=== PATIENT | male | born 1965 | race Caucasian/White ===

== ENCOUNTER 2025-09-03 07:40 | Emergency (ER) | payer BC, SELFPAY ==
[2025-09-03] VITALS (11 sets, daily range): BP systolic 115–158; BP diastolic 63–100; PULSE 62–77; RESP 13–19; TEMP 36.6–36.7; O2SAT 78–99; BMI 30.3
--- NOTE | 2025-09-03 07:42 | ED_ITS ---
Discharge Plan Disposition Patient Disposition: Home, Self-Care Condition: Fair Prescriptions Prescriptions: New oxycodone 5 mg tablet 5 mg PO Q6H PRN (Reason: pain) Qty: 12 0RF ibuprofen 800 mg tablet 800 mg PO Q8H PRN (Reason: pain) Qty: 30 0RF tamsulosin [Flomax] 0.4 mg capsule 0.4 mg PO HS Qty: 7 0RF ondansetron 4 mg tablet,disintegrating 4 mg PO Q6H PRN (Reason: nausea and vomiting) Qty: 12 0RF acetaminophen 500 mg capsule 1,000 mg PO Q6H PRN (Reason: pain) Qty: 30 0RF Referrals Follow up/Referrals: Shreyas Shukla [Primary Care Provider, Medical] - See instructions Activity Restrictions/Add. Instructions Additional Instructions/Restrictions: Stay well-hydrated. Return if you develop fevers, inability urinate, inability to control pain with medicines at home. Follow-up with urology at the [facility]. If they do not call you, call their clinic line, . You have been prescribed opioid pain medications. Take only as prescribed and only when needed for pain. Please do not drive, operate heavy machinery, or make important decisions while taking this medication until you know how it affects you as they can impair your judgement. Do not drink alcohol while taking this medication. Should you need a refill of this pain medication, please contact your primary care provider. Clinical Impressions Clinical Impression: Ureterolithiasis Instructions Patient Instructions: DI for Acute Abdominal Pain Print Language Print Language: Occitan Discharge ED Provider: Joss Brady Adult HPI General Chief complaint: Abdominal Pain Stated complaint: pain on L side Time Seen by Provider: 09/03/25 07:42 History of Present Illness HPI narrative: Patient is a 59-year-old male with history of hypertension hyperlipidemia and kidney stones. He has had to have stenting in the past as well as lithotripsy. He presents today due to concerns for left-sided flank pain that began last night. He thought that he could tough it out but it has worsened throughout the night and into this morning. It is sharp and stabbing in nature radiating from his left flank to his left groin into his testicle and down his leg. He denies any testicular swelling or redness or pain directly, just radiation from his left flank. He reports that it feels similar to his previous kidney stones. He is still making urine, denies any urinary changes denies any gross hematuria. Denies any fevers. Endorses nausea without vomiting. No other sick like symptoms. Denies any numbness tingling weakness chest pain shortness of breath. Denies any alcohol tobacco or drug use. Related Data Previous Rx's ?Medication ?Instructions ?Recorded acetaminophen 500 mg capsule 1,000 mg (2 x 500 mg) PO Q6H PRN 09/03/25 pain #30 caps ibuprofen 800 mg tablet 800 mg PO Q8H PRN pain #30 t abs 09/03/25 ondansetron 4 mg disintegrating 4 mg PO Q6H PRN nausea and 09/03/25 tablet vomiting #12 tabs oxycodone 5 mg tablet 5 mg PO Q6H PRN pain #12 tab s 09/03/25 tamsulosin 0.4 mg capsule (Flomax) 0.4 mg PO HS #7 cap s 09/03/25 Allergies Allergy/AdvReac Type Severity Reaction Status Date / Time No Known Allergies Allergy Verified 09/03/25 07:58 [facility] Disclaimer: The information contained in this section may have been updated after the patient was seen, as this information can be updated by other users. Social History Smoking Status: Former smoker alcohol intake: never current occupational status: employed Travel in the last 8 weeks?: None ROS Obtained: Yes All systems reviewed & no additional complaints except as documented Physical Exam General General appearance: alert and in no apparent distress Head Head exam: atraumatic and normocephalic Eye Eye exam: Present PERRL and EOMI ENT ENT exam: Present normal oropharynx Neck Neck exam: Present full ROM and trachea midline Chest Chest inspection: Present symmetric chest wall rise Respiratory Respiratory exam: Present normal lung sounds bilaterally; Absent stridor Cardiovascular Cardiovascular exam: Present regular rate and normal rhythm Abdominal Exam Abdominal exam: Present soft; Absent distention or tenderness Extremities Exam Extremities exam: Present full ROM Back Exam Back exam: Present CVA tenderness (L) Neurological Exam Neurological exam: Present alert and oriented X3 Psychiatric Psychiatric exam: Present normal mood Skin Skin exam: Present warm and dry Medical Decision Making Medical Records Screening: Per USPSTF and CDC recommendations, given the prevalence of disease in our region, it is our hospital?s policy to screen for HIV and viral Hepatitis for all patients aged 18 and over and those with ongoing risk factors. Markus Inquiry Pt receiving controlled substance: Yes Markus was queried for this patient: Yes Risks and benefits of using a controlled substance: were discussed with pt by me Vital Signs: 09/03/25 07:49 09/03/25 08:08 09/03/25 08:15 Temperature 97.9 F Temperature Source Oral Pulse Rate 66 75 Pulse Rate [Left Radial] 77 Respiratory Rate 19 Blood Pressure 146/68 H Blood Pressure [Right Arm] 158/100 H Blood Pressure Mean Blood Pressure Mean [Right Arm] 119 02 Sat by Pulse Oximetry 99 97 78 L Oxygen Delivery Method Room Air Room Air Nasal Cannula Oxygen Flow Rate (LPM) 2 09/03/25 08:30 09/03/25 08:45 09/03/25 09:00 Temperature Temperature Source Pulse Rate 70 72 74 Pulse Rate [Left Radial] Respiratory Rate Blood Pressure 126/78 122/79 121/81 Blood Pressure [Right Arm] Blood Pressure Mean 94 Blood Pressure Mean [Right Arm] 02 Sat by Pulse Oximetry 95 97 96 Oxygen Delivery Method Oxygen Flow Rate (LPM) 09/03/25 09:15 09/03/25 09:30 09/03/25 09:45 Temperature Temperature Source Pulse Rate 71 62 68 Pulse Rate [Left Radial] Respiratory Rate Blood Pressure 115/63 132/87 131/88 Blood Pressure [Right Arm] Blood Pressure Mean Blood Pressure Mean [Right Arm] 02 Sat by Pulse Oximetry 97 96 97 Oxygen Delivery Method Oxygen Flow Rate (LPM) 09/03/25 10:06 Temperature Temperature Source Pulse Rate Pulse Rate [Left Radial] Respiratory Rate Blood Pressure Blood Pressure [Right Arm] Blood Pressure Mean Blood Pressure Mean [Right Arm] 02 Sat by Pulse Oximetry 98 Oxygen Delivery Method Room Air Oxygen Flow Rate (LPM) Lab Data Lab Results 09/03/25 07:48: Urine Color Yellow, Urine Appearance Clear, Urine pH 6.0, Ur Specific [place]lin 1.025, Urine Protein Trace, Urine Glucose (UA) Negative, Urine Ketones Trace, Urine Blood 3+ A, Urine Nitrate Negative, Urine Bilirubin Negative, Urine Urobilinogen 0.2, Ur Leukocyte Esterase Negative, Urine RBC 20- 50, Urine WBC Occasional, Ur Squamous Epith Cells None, Urine Bacteria Trace 09/03/25 07:55: WBC 9.8, RBC 5.05, Hgb 14.0 L, Hct 41.3 L, MCV 81.8, MCH 27.7, MCHC 33.9, RDW 14.8, Plt Count 230, MPV 10.0, Neut % (Auto) 81.2 H, Lymph % (Auto) 12.6, [place] % (Auto) 5.4, Eos % (Auto) 0.2, Baso % (Auto) 0.3, Neut # (Auto) 8.0 H, Lymph # (Auto) 1.2, [place] # (Auto) 0.5, Eos # (Auto) 0.0, Baso # (Auto) 0.0, Sodium 135 L, Potassium 4.1, Chloride 105, Carbon Dioxide 21 L, Anion Gap 13.1, BUN 22 H, Creatinine 1.00, Estimated Creat Clear 94, Estimated GFR 76, Est GFR ( Amer) 92, Glucose 150 H, Calcium 9.6, Total Bilirubin 1.0, AST 39, ALT 43, Alkaline Phosphatase 126, Total Protein 8.0, Albumin 4.7, G lobulin 3.3 H, Albumin/Globulin Ratio 1.4, Lipase 79 09/03/25 07:55 09/03/25 07:55 Orders (Tests/Meds): ED MEDICATIONS Discontinued Medications Generic Name Dose Route Start Last Admin Trade Name Freq PRN Reason Stop Dose Admin Acetaminophen 1,000 mg 09/03/25 09:55 09/03/25 10:05 Acetaminophen 500mg Tab PO 09/03/25 09:56 1,000 mg ONCE ONE Administration Hydromorphone HCl 1 mg 09/03/25 07:51 09/03/25 08:08 Hydromorphone 2mg/Ml Syringe IV 09/03/25 07:52 1 mg ONCE ONE Administration Sodium Chloride 1,000 mls @ 999 mls/hr 09/03/25 07:51 09/03/25 09:25 Sod Chlor 0.9% 1000ml Bag IV 09/03/25 08:51 Infused .Q1H1M ONE Infusion Ketorolac Tromethamine 15 mg 09/03/25 07:51 09/03/25 08:07 Ketorolac 15mg/Ml Vial IV 09/03/25 07:52 15 mg ONCE ONE Administration Ondansetron HCl 4 mg 09/03/25 07:51 09/03/25 08:15 Ondansetron 4mg/2ml Vial IV 09/03/25 07:52 4 mg ONCE ONE Administration Oxycodone HCl 5 mg 09/03/25 09:56 09/03/25 10:05 Oxycodone 5mg Immediate Release Tablet PO 09/03/25 09:57 5 mg ONCE ONE Administration Tamsulosin HCl 0.4 mg 09/03/25 08:17 09/03/25 08:40 Tamsulosin 0.4mg Capsule PO 09/03/25 08:18 0.4 mg ONCE ONE Administration ORDERS Category Date Time Status CT abdomen pelvis wo con Stat Cat Scan 09/03/25 07:51 Taken CBC w/Auto Diff [Complete Blood Count Auto Diff] Stat Lab 09/03/25 07:55 Completed CMP [Comprehensive Metabolic Panel] Stat Lab 09/03/25 07:55 Completed Lipase Stat Lab 09/03/25 07:55 Completed UA [Urinalysis and Microscopic] Stat Lab 09/03/25 07:48 Completed Urine Culture Stat Micro 09/03/25 07:48 Received Medical Decision Narrative: Patient is a 59-year-old male with history of hypertension hyperlipidemia kidney stones presenting today with left flank pain that began last night. On arrival, he is afebrile, mildly hypertensive, otherwise stable. On exam, warm and well- perfused full pulses brisk capillary refill. Full pulses and equal in all extremities. His abdomen is soft, does have an easily reproducible chronic umbilical hernia. No tenderness anteriorly, he does have left-sided CVA tenderness, deferred exam, but patient reports that its within normal limits. Clinically, high suspicion for kidney stone given patient is writhing around on the bed unable to find a comfortable position, consistent with ureteral spasm present presence of a stone. Will proceed with pain control first and foremost. Cross-sectional imaging to evaluate for stone burden and hydronephrosis as well as obtain hematologic labs to evaluate kidney function. Urinalysis to rule out infection. If not kidney stone, will evaluate for further etiologies, but I have high suspicion for this at this time. Ureterolithiasis identified with a 7 mm stone at the left UVJ with moderate left hydroureteronephrosis. Patient's creatinine is normal, his urine is not infected with only large red blood cells. His white count is normal. [place] reasonable to consult with urology at [facility] Dr. [facility]'s who I spoke with and she agrees with the plan and seeing patient in clinic later this week. Patient's pain is under control on reassessment, will send with Flomax and multimodal pain control. Strict return precautions are discussed all questions answered amenable to plan and discharge Critical Care Critical Care Time Critical Care Time: No
--- NOTE | 2025-09-03 07:51 | CT_ITS ---
FINAL REPORT TECHNIQUE: Noncontrast CT exam of the abdomen and pelvis. This study was performed with techniques to keep radiation doses as low as reasonably achievable (ALARA). Individualized dose reduction techniques using automated exposure control or adjustment of mA and/or kV according to the patient's size were employed. CLINICAL HISTORY: l flank pain, hx stone, r/o stone, hydro COMPARISON: None FINDINGS: Abdomen: Lung bases are clear. Liver, spleen, pancreas and adrenal glands have a normal CT appearance in their limited unenhanced state. There is a small umbilical hernia present containing fat. Moderate left hydronephrosis and hydroureter secondary to a UVJ stone measuring 7 mm in size. There are bilateral calyceal stones measuring up to 6 mm in size, more numerous on the left than on the right. Pelvis: The appendix is normal in appearance. There is diverticulosis of the sigmoid colon. Mild prostate enlargement is noted. Bladder is unremarkable. No fluid collection or adenopathy is seen. IMPRESSION: Moderate left hydronephrosis and hydroureter secondary to a UVJ stone measuring 7 mm in size. Reviewed, Interpreted and Dictated by Cristóbal Salmon MD Transcribed by Sarah Verma Authenticated and [facility]
--- OUTSIDE RECORDS SUMMARY | 2025-09-03 07:56 | XMS_ITS | Encounter Summary ---
Author Organization [employer] ([place], [place], [place], [place], [place]) Address [address] [place] [address] Care Team Providers Care Director Financial Systems Name Role Phone Unavailable Primary Care Provider Unavailabl e Encounter Details Date Type Department Care Team (Late st Contact Info) Description 09/15/[address] [facility] Family Medicine [address] [place] [address] ProviderDonald MD [address] [place] [address] Social History Tobacco Use Types Packs/Day Years Used Date Smoking Tobacco: Never Assessed Sex and Gender Information Value Date Recorded Sex Assigned at Male 04/19/2022 3:06 PM CDT Legal Sex Male 3:06 PM CDT Gender Identity Male 04/19/2022 3:06 PM CDT Sexual Orientation Not on file documented as of this encounter Miscellaneous Notes * Cerner Conversion Note - Historical ProviderMD - 09/15/2019 8:53 AM ARCHAEOLOGY PROFESSOR [place] Suicide Severity Rating Scale (C-SSRS) Entered On: 09/15/2019 10:20 EST Performed On: 09/15/2019 10:20 EST by LAURIE MERCADO RN [place] Suicide Severity Rating Scale (C-SSRS) CSSRS Past Month Wish to be : No CSSRS Past Month Suicidal Thoughts : No CSSRS Lifetime Suicide Behavior : No Suicide Severity Rating Score : 0 Suicide Severity Rating : No Additional Care Required at this time LAURIE MERCADO RN - 09/15/2019 10:20 EST documented in this encounter Plan of Treatment Not on file documented as of this encounter Visit Diagnoses Not on filedocumented in this encounter
--- OUTSIDE RECORDS SUMMARY | 2025-09-03 07:56 | XMS_ITS | Encounter Summary ---
Author Organization [employer] ([place], [place], [place], [place], [place]) Address [address] [place] [address] Care Team Providers Care Music Minister Name Role Phone Unavailable Primary Care Provider Unavailabl e Encounter Details Date Type Department Care Team (Late st Contact Info) Description 08/06/[address] [facility] [place] Family Medicine [facility] [place] [address] ProviderDonald MD [address] [place] [address] Social History Tobacco Use Types Packs/Day Years Used Date Smoking Tobacco: Never Assessed Sex and Gender Information Value Date Recorded Sex Assigned at Male 04/19/2022 3:06 PM CDT Legal Sex Male 3:06 PM CDT Gender Identity Male 04/19/2022 3:06 PM CDT Sexual Orientation Not on file documented as of this encounter Miscellaneous Notes * Cerner Conversion Note - Historical ProviderMD - 08/06/2019 10:46 AM CDT PAT Adult Entered On: 08/06/2019 10:49 EDT Performed On: 08/06/2019 10:46 EDT by NEHA FALCON RN Height and Weight, Clinical Dosing Height Source : Measured Height Entry Format : [place] Height, Inches : 66 Inch(Converted to: 5 ft 6 Inch, 167.64 cm) Clinical Height : 167.64 cm Weight Source : Standing scale Weight Entry Format : [place] Clinical Dosing Weight : 89.55 kg Weight, Pounds : 197 lb Body Surface Area (BSA) : 1.99 m2 Body Mass Index : 31.9 kg/m2 (HI) [place] Body Weight : 63 kg NEHA FALCON RN - 08/06/2019 10:46 EDT Health Histories Smoking Status : Never (less than 100 in lifetime; none in last 30 days) Smokeless Tobacco Status : Former smokeless tobacco user, quit more than 30 days ago NEHA FALCON RN - 08/06/2019 10:46 EDT Social History (As Of: 08/06/2019 10:49:37 EDT) Tobacco: Use in Last 12 Months: Snuff/Dip. (Last Updated: 04/28/2017 07:28:21 EDT by CRISTIANO SONG, ANAND) Alcohol: Alcohol Use History Yes. Alcohol Use Frequency Rarely, Socially. (Last Updated: 04/28/2017 07:28:29 EDT by CRISTIANO SONG, ANAND) Substance Abuse: Use in Last 12 Months: No. (Last Updated: 04/28/2017 07:28:32 EDT by CRISTIANO SONG, ANAND) Home/Environment: Living situation: Home/Independent. (Last Updated: 11/21/2014 09:33:15 EST by NOY HERNANDEZ PA-C) Infectious Disease History Infectious Disease History : Chicken pox/Shingles, Influenza, Measles, Mumps Fever/Chills Last 48 Hours : No Travel To Regions with Travel Advisories : No Travel Outside [place] Within Last 30 Days : No Contact With Traveler to Advisory Region : No Tuberculosis Symptoms : None NEHA FALCON RN - 08/06/2019 10:46 EDT Anesthesia/Transfusion History Family History of Anesthesia Reaction : No prior transfusion(s) Blood Transfusion Acceptable to Patient : Yes Transfusion History : Prior anesthesia without reaction Family History of Anesthesia Reaction : None NEHA FALCON RN - 08/06/2019 10:46 EDT Functional Assessment Functional ADL Evaluation Index EBN Bathing : Independent (2) Dressing : Independent (2) Toileting : Independent (2) Transferring Bed or Chair : Independent (2) Continence : Independent (2) Feeding : Independent (2) NEHA FALCON RN - 08/06/2019 10:46 EDT ADL Index Score : 12 NEHA FALCON RN - 08/06/2019 10:46 EDT Advance Directive Patient has Advance Directive *Q : No, patient refuses Advance Directive information NEHA FALCON RN - 08/06/2019 10:46 EDT Spiritual/Cultural Needs Significant Loss/Crisis in Past 3 Years : No Significant Distress/Coping/Need Support : No Any Spiritual/Cultural Needs or Requests : No NEHA FALCON RN - 08/06/2019 10:46 EDT Psychosocial History Do You Have a History of the Following? : Patient denies history Currently in Unsafe Situation : No Tried to Harm Yourself in the Past? : No Thoughts of Harming/Killing Yourself : No NEHA FALCON RN - 08/06/2019 10:46 EDT General Info Preferred Name : David Support Person/Pt Rep Name : Zaida [id number] Primary Language : Kyrgyz Preferred Communication Mode : Verbal Communication Barrier : None NEHA FALCON RN - 08/06/2019 10:46 EDT Corey Scale Corey Sensory Perception : No impairment Corey Moisture : Rarely moist Corey Activity : Walks occasionally Corey Mobility : No limitation Corey Nutrition : Adequate Corey Friction and Shear : No apparent problem Corey Score : 21 NEHA FALCON RN - 08/06/2019 10:46 EDT Sleep Apnea Risk Assmt Hx of Obstructive Sleep Apnea Diagnosis : No Snore Loudly : Yes Tired, Fatigued, or Sleepy During Day : No Observed Stopping Breathing During Sleep : Yes Have/Are Being Treated for Hypertension : Yes BMI Greater Than 35 kg/m2 : Yes Age over 50 Years Old : Yes Neck Circumference Greater Than 40 cm : No Gender Male : Yes STOP-BANG Sleep Apnea Risk Level Score : 6 NEHA FALCON RN - 08/06/2019 10:46 EDT documented in this encounter Plan of Treatment Not on file documented as of this encounter Visit Diagnoses Not on filedocumented in this encounter
--- OUTSIDE RECORDS SUMMARY | 2025-09-03 07:56 | XMS_ITS | Encounter Summary ---
Author Organization [employer] ([place], [place], [place], [place], [place]) Address [address] [place] [address] Care Team Providers Care Non Food Receiving Clerk Name Role Phone Unavailable Primary Care Provider Unavailabl e Encounter Details Date Type Department Care Team (Late st Contact Info) Description 08/06/2019 Transcribed Document [facility] [place] Family Medicine [facility] [place] [address] ProviderDonald MD [address] [place], [place] [id number] Social History Tobacco Use Types Packs/Day Years Used Date Smoking Tobacco: Never Assessed Sex and Gender Information Value Date Recorded Sex Assigned at Male 04/19/2022 3:06 PM CDT Legal Sex Male 3:06 PM CDT Gender Identity Male 04/19/2022 3:06 PM CDT Sexual Orientation Not on file documented as of this encounter Miscellaneous Notes * Cerner Conversion Note - Historical ProviderMD - 08/06/2019 1:53 PM CDT DATE OF PROCEDURE: 08/06/2019 PREOPERATIVE DIAGNOSIS: Left renal stones. POSTOPERATIVE DIAGNOSIS: Left renal stones. PROCEDURE: Left extracorporeal shock wave lithotripsy. COMPLICATIONS: None. INDICATIONS: The patient is a 53-year-old man, who has symptomatic renal stones on the left, 1 cm and 5 mm. The patient desires to have treatment. I have recommended ESWL. Risks and benefits were discussed. He wished to proceed. PROCEDURE IN DETAIL: The patient was taken to the operative suite, placed in the supine position, underwent general anesthesia. The largest of the stones was identified and focused in the blast path. Using biplanar fluoroscopy, we then delivered a total of 1800 shocks to the stone which fragmented it nicely. We then repositioned on the second stone and fragmented this as well. There was a small fragment posterolaterally, and this came close to the largest stone, and we completed the total of 2400 shocks on this collection of stone debris. At this point, the patient was then awakened and taken to the recovery room in good condition. No complications incurred. The patient tolerated the procedure well. FINDINGS: The patient had a left renal stone, treated with ESWL. He will be discharged with analgesic. He will follow up in 1 month with the [facility]. He will call us if there are any concerns or questions. /[id number] [place] H MD MICAH Kemp/BECCA / MICAH / MODL /[id number] documented in this encounter Plan of Treatment Not on file documented as of this encounter Visit Diagnoses Not on filedocumented in this encounter
--- OUTSIDE RECORDS SUMMARY | 2025-09-03 07:56 | XMS_ITS | Encounter Summary ---
Author Organization [employer] ([place], [place], [place], [place], [place]) Address [address] [place] [address] Care Team Providers Care Dropper Tank Storage Name Role Phone Unavailable Primary Care Provider Unavailabl e Encounter Details Date Type Department Care Team (Late st Contact Info) Description 09/18/2019 Transcribed Document [facility] [place] [facility] [place] [address] ProviderDonald MD [address] [place] [address] Social History Tobacco Use Types Packs/Day Years Used Date Smoking Tobacco: Never Assessed Sex and Gender Information Value Date Recorded Sex Assigned at Male 04/19/2022 3:06 PM CDT Legal Sex Male 3:06 PM CDT Gender Identity Male 04/19/2022 3:06 PM CDT Sexual Orientation Not on file documented as of this encounter Miscellaneous Notes * Cerner Conversion Note - Historical ProviderMD - 09/18/2019 10:03 PM DRIVER LICENSE EXAMINER Vital Signs ED Entered On: 09/18/2019 22:06 EST Performed On: 09/18/2019 22:03 EST by Jackelin Tavares, EMERGENCY ROOM MACHINE FILLER Vital Signs ED Temperature Source : Oral Temperature Mode : Fahrenheit Temperature, Fahrenheit : 98.4 Deg F ED Pain : Yes Clinical Temperature, C : 36.9 Deg C Oxygen Therapy Mode : Room air Peripheral Pulse Rate : 85 bpm Respiratory Rate : 17 Breaths/Min Blood Pressure Location : Arm, right upper Blood Pressure Source : Non-Invasive BP Device Systolic Blood Pressure : 136 mmHg Diastolic Blood Pressure : 94 mmHg (HI) Oxygen Saturation : 98 % Jackelin Tavares, EMERGENCY ROOM MACHINE FILLER - 09/18/2019 22:03 EST Electronically signed by Tito [facility] Conversion Ict Quality Assurance Engineer Cerod[place] at 02/06/2023 3:06 PM CDT documented in this encounter Plan of Treatment Not on file documented as of this encounter Visit Diagnoses Not on filedocumented in this encounter
--- OUTSIDE RECORDS SUMMARY | 2025-09-03 07:56 | XMS_ITS | Encounter Summary ---
Author Organization [id number] ([place], [place], [place], [place], [place]) Address [address] [place] [address] Care Team Providers Care Talent Scout Name Role Phone Unavailable Primary Care Provider Unavailabl e Encounter Details Date Type Department Care Team (Late st Contact Info) Description 09/15/2019 Transcribed Document [facility] [place] [facility] [place] [address] ProviderDonald MD [address] [place] [address] Social History Tobacco Use Types Packs/Day Years Used Date Smoking Tobacco: Never Assessed Sex and Gender Information Value Date Recorded Sex Assigned at Male 04/19/2022 3:06 PM CDT Legal Sex Male 3:06 PM CDT Gender Identity Male 04/19/2022 3:06 PM CDT Sexual Orientation Not on file documented as of this encounter Miscellaneous Notes * Cerner Conversion Note - Donald Marte MD - 09/15/2019 12:48 PM SENIOR MEDIA BUYER [facility] [place] [address] MORALES KNIGHTE :1965 Visit Time:09/15/2019 Your Visit Summary Your Care Team Primary Provider: PAULA SANDY PA-C Secondary Provider: Your Diagnosis Flank pain Left ureteral stone Medical Information You may obtain a copy of your Emergency Department visit from Medical Records by calling the hospital phone number listed above and asking to be directed to the Medical Records Department. If you had special tests, such as EKG???s or X-rays, the interpretation of your tests given to you by the Emergency Department Physician is a preliminary report. Some fractures and illnesses fail to show up on preliminary tests. These will be reviewed again and we will call you if there are any new suggestions. If your symptoms continue notify your physician. After you leave, you should follow the instructions provided. What to do next Follow-Up Appointments Follow Up with NAKUL ROCHE When Within 2 to 3 days Where: [address] [place] [address]- Business (1) Follow Up with [facility] When Within 2 to 3 days Comments Please contact the [facility] at if you need assistance finding a Primary Care Provider or Specialist in the future. Increase fluids. Call urology tomorrow and discuss follow up plan/labs/ct reports. REturn to ER if symptoms worse or different Follow Up with LUIZ CONTE When Within 2 to 3 days Where: [address] [place] [address] [facility] (1) Allergies No Known Allergies Immunizations This Visit No Immunizations Found Medications What How Much When Instructions Next Dose The home medications listed are only as accurate as the information you provided. Please continue taking all of your medications prescribed by your Primary Care Provider unless specifically told to change or discontinue the medication. Please direct any questions regarding your home medications to your Primary Care Provider. Take your medications faithfully. Do NOT skip medication. Do NOT stop taking medications without the direction of a physician. Carry a list of your medications with you at all times, and take this medication list with you to your first follow up visit. Report any side effects. Avoid herbal remedies unless discussed with your physician. As part of your treatment plan, your physician may have prescribed a limited course of a controlled substance. This medication may be given to help people with moderate or severe pain or for other medical conditions, but there are risks involved with treatment. Common side effects may include nausea, constipation, drowsiness, sweating, itching, dry mouth, and rash. More serious side effects may include cognitive and motor impairment, like problems with thinking, concentrating, alertness, and movement (e.g. slowed reflexes), and driving and operating heavy machinery can be dangerous. It is important for you to talk to your physician if you have these side effects or questions. These controlled substances can produce physical dependence and be habit-forming if taken for an extended period of time, which means that the body has gotten used to them and may experience withdrawal symptoms if they are abruptly stopped. Withdrawal symptoms can include runny nose, sweating, goose bumps, diarrhea, abdominal cramping, rapid heartbeat, difficulty sleeping, and nervousness. Please dispose of unused and medications per pharmacy guidance. Test Results Laboratory or Other Results This Visit (last charted value for your 09/15/2019 visit) Hematology 09/15/2019 9:44 AM WBC: 12.2 K/uL -- Normal range between ( 3.6 and 9.5 ) RBC: 4.89 Million/uL -- Normal range between ( 4.20 and 5.70 ) Hct: 43.2 % -- Normal range between ( 40.1 and 51.0 ) Hgb: 15.0 g/dL -- Normal range between ( 13.5 and 17.3 ) Platelet Count: 200 K/uL -- Normal range between ( 163 and 369 ) MCH: 30.7 pg -- Normal range between ( 25.6 and 32.2 ) MCHC: 34.7 Gram/dL -- Normal range between ( 32.2 and 36.5 ) MCV: 88.3 fL -- Normal range between ( 79.0 and 94.8 ) Slide Review: No Eos %: 1.0 % -- Normal range between ( 0.0 and 7.0 ) Wilcox #: 1.20 K/uL -- Normal range between ( 0.16 and 1.00 ) Eos #: 0.12 x10(3)/uL -- Normal range between ( 0.00 and 0.80 ) Wilcox %: 9.8 % -- Normal range between ( 3.0 and 9.0 ) Baso %: 0.3 % -- Normal range between ( 0.0 and 1.5 ) Baso #: 0.04 x10(3)/uL -- Normal range between ( 0.00 and 0.20 ) RDW: 12.1 % -- Normal range between ( 11.7 and 14.9 ) Neut %: 79.5 % -- Normal range between ( 34.0 and 71.0 ) Neut #: 9.68 K/uL -- Normal range between ( 1.56 and 6.13 ) Lymph %: 9.0 % -- Normal range between ( 19.3 and 53.1 ) Lymph #: 1.10 x10(3)/uL -- Normal range between ( 1.00 and 3.90 ) MPV: 9.7 fL -- Normal range between ( 9.4 and 12.4 ) IG#: 0.05 x10(3)/uL -- Normal range between ( 0.00 and 0.05 ) IG%: 0.40 % -- Normal range between ( 0.00 and 0.60 ) Urinalysis 09/15/2019 9:44 AM Urine Nitrite: Negative Urine Leukocyte Esterase: Negative Urine Appearance: Clear Urine Glucose Dipstick: Negative Urine Blood Dipstick: Negative Urine Type: U CleanCatch Urine Urobilinogen Dipstick: 0.2 EU/dL Urine Protein Dipstick: Negative Urine Color: Ana Urine Ketones Dipstick: Negative Urine pH Dipstick: 6.0 -- Normal range between ( 6.0 and 8.0 ) Urine Bilirubin Dipstick: Negative Urine Specific [place]: 1.027 -- Normal range between ( 1.005 and 1.030 ) General Chemistry 09/15/2019 9:44 AM Creatinine Level: 2.00 mg/dL -- Normal range between ( 0.70 and 1.30 ) Sodium Level: 136 mmol/L -- Normal range between ( 136 and 146 ) Potassium Level: 4.0 mmol/L -- Normal range between ( 3.5 and 5.1 ) Chloride Level: 105 mmol/L -- Normal range between ( 102 and 112 ) Carbon Dioxide Level: 27 mmol/L -- Normal range between ( 21 and 32 ) Anion Gap: 8 -- Normal range between ( 9 and 20 ) Bilirubin Total: 1.4 mg/dL -- Normal range between ( 0.2 and 1.2 ) A/G Ratio: 0.9 -- Normal range between ( 1.1 and 2.5 ) ALT: 45 Units/Liter -- Normal range between ( 16 and 61 ) AST: 20 Units/Liter -- Normal range between ( 5 and 37 ) Globulin: 3.8 Gram/dL -- Normal range between ( 1.5 and 4.5 ) Alk Phos: 93 Units/Liter -- Normal range between ( 27 and 136 ) Bun/Creatinine: 14.0 -- Normal range between ( 8.0 and 20.0 ) Calcium Level: 8.9 mg/dL -- Normal range between ( 8.4 and 10.1 ) eGFR : 42 mL/min/1.73m2 eGFR NonAfrican: 35 mL/min/1.73m2 Glucose Level: 110 mg/dL -- Normal range between ( 74 and 106 ) Blood Urea Nitrogen: 28 mg/dL -- Normal range between ( 7 and 22 ) Lactic Acid Level: 1.3 mmol/L -- Normal range between ( 0.4 and 2.0 ) Protein Total: 7.4 Gram/dL -- Normal range between ( 6.4 and 8.2 ) Albumin Level: 3.6 Gram/dL -- Normal range between ( 3.4 and 5.0 ) Computed Tomography 09/15/2019 11:[address] Abdomen Pelvis WO: CT Abdomen Pelvis WO [employer] Kidney Stones Kidney stones (urolithiasis) are solid, rock-like deposits that form inside of the organs that make urine (kidneys). A kidney stone may form in a kidney and move into the bladder, where it can cause intense pain and block the flow of urine. Kidney stones are created when high levels of certain minerals are found in the urine. They are usually passed through urination, but in some cases, medical treatment may be needed to remove them. What are the causes? Kidney stones may be caused by: ??? A condition in which certain glands produce too much parathyroid hormone (primary hyperparathyroidism), which causes too much calcium buildup in the blood. ??? Buildup of uric acid crystals in the bladder (hyperuricosuria). Uric acid is a chemical that the body produces when you eat certain foods. It usually exits the body in the urine. ??? Narrowing (stricture) of one or both of the tubes that drain urine from the kidneys to the bladder (ureters). ??? A kidney blockage that is present at (congenital obstruction). ??? Past surgery on the kidney or the ureters, such as gastric bypass surgery. What increases the risk? The following factors make you more likely to develop kidney stones: ??? Having had a kidney stone in the past. ??? Having a family history of kidney stones. ??? Not drinking enough water. ??? Eating a diet that is high in protein, salt (sodium), or sugar. ??? Being overweight or obese. What are the signs or symptoms? Symptoms of a kidney stone may include: ??? Nausea. ??? Vomiting. ??? Blood in the urine (hematuria). ??? Pain in the side of the abdomen, right below the ribs (flank pain). Pain usually spreads (radiates) to the groin. ??? Needing to urinate frequently or urgently. How is this diagnosed? This condition may be diagnosed based on: ??? Your medical history. ??? A physical exam. ??? Blood tests. ??? Urine tests. ??? CT scan. ??? Abdominal X-ray. ??? A procedure to examine the inside of the bladder (cystoscopy). How is this treated? Treatment for kidney stones depends on the size, location, and makeup of the stones. Treatment may involve: ??? Analyzing your urine before and after you pass the stone through urination. ??? Being monitored at the hospital until you pass the stone through urination. ??? Increasing your fluid intake and decreasing the amount of calcium and protein in your diet. ??? A procedure to break up kidney stones in the bladder using: ? A focused beam of light (laser therapy). ? Shock waves (extracorporeal shock wave lithotripsy). ??? Surgery to remove kidney stones. This may be needed if you have severe pain or have stones that block your urinary tract. Follow these instructions at home: Eating and drinking ??? Drink enough fluid to keep your urine clear or pale yellow. This will help you to pass the kidney stone. ??? If directed, change your diet. This may include: ? Limiting how much sodium you eat. ? Eating more fruits and vegetables. ? Limiting how much meat, poultry, fish, and eggs you eat. ??? Follow instructions from your health care provider about eating or drinking restrictions. General instructions ??? Collect urine samples as told by your health care provider. You may need to collect a urine sample: ? 24 hours after you pass the stone. ? 8???12 weeks after passing the kidney stone, and every 6???12 months after that. ??? Strain your urine every time you urinate, for as long as directed. Use the strainer that your health care provider recommends. ??? Do not throw out the kidney stone after passing it. Keep the stone so it can be tested by your health care provider. Testing the makeup of your kidney stone may help prevent you from getting kidney stones in the future. ??? Take khjr-hha-wrpaupk and prescription medicines only as told by your health care provider. ??? Keep all follow-up visits as told by your health care provider. This is important. You may need follow-up X-rays or ultrasounds to make sure that your stone has passed. How is this prevented? To prevent another kidney stone: ??? Drink enough fluid to keep your urine clear or pale yellow. This is the best way to prevent kidney stones. ??? Eat a healthy diet and follow recommendations from your health care provider about foods to avoid. You may be instructed to eat a low-protein diet. Recommendations vary depending on the type of kidney stone that you have. ??? Maintain a healthy weight. Contact a health care provider if: ??? You have pain that gets worse or does not get better with medicine. Get help right away if: ??? You have a fever or chills. ??? You develop severe pain. ??? You develop new abdominal pain. ??? You faint. ??? You are unable to urinate. This information is not intended to replace advice given to you by your health care provider. Make sure you discuss any questions you have with your health care provider. Document Released: 10/09/2006 Document Revised: 03/22/2018 Document Reviewed: 03/24/2017 [employer] Interactive Patient Education ?? 2019 [employer] Emergency Awareness and Preventative Care STROKE is an EMERGENCY Every Minute Counts Act FAST and Check for these signs: FACE Does the face look uneven? ARM Does one arm drift down? SPEECH Does their speech sound strange? TIME Call at any sign of stroke Stroke Risk Factors Atrial Fibrillation (irregular heartbeat) Diabetes Family history of stroke Heart Disease Heavy alcohol use High Blood Pressure High Cholesterol Physical inactivity and obesity Smoking Cigarette Smoking The facts are clear, cigarette smoking will shorten your life. Smoking can cause many illnesses along the way. As a healthcare provider, we recommend that you stop smoking. Assistance with quitting is available by contacting 7-283-FADINOW. This is a free resource providing counseling, support, and referral. Or you may contact your personal physician. National Suicide Prevention Lifeline: The National Suicide Prevention Lifeline is a national network of local crisis centers that provides free and confidential emotional support to people in suicidal crisis or emotional distress 24 hours a day, 7 days a week. Don't Wait! Stop a Heart Attack Before it Starts What is a heart attack? A heart attack is damage or to a part of the heart from severely decreased or lack of blood flow to the heart. Over time, arteries can become narrow from the buildup of fat and cholesterol, which is called plaque. The plaque can rupture causing a blood clot to form. When the blood clot forms, the artery can become severely narrowed or completely blocked, causing a heart attack. Heart attack is the leading cause of in the [place]. 85% of muscle damage occurs within the first 2 hours. Delay in the recognition of heart attack symptoms increases the chances of . Know the early symptoms of a heart attack: Nausea Feeling of fullness in chest Jaw Pain Pain that travels down one or both arms Fatigue/being tired Anxiety Back Pain Chest pressure, squeezing, or discomfort Shortness of breath Sweating, or a cold sweat Feeling of impending doom There are unusual signs of a heart attack, too! Women, the elderly, and diabetics may present with atypical symptoms: Fainting/dizziness Weakness Confusion Risk Factors for a Heart Attack Some heart disease risk factors, such as age and family history, cannot be changed. Others, like smoking and lack of exercise, can be changed. Smoking High Cholesterol High Blood Pressure Family History Obesity Age Gender (Males are at higher risk) Lack of Exercise Diabetes Diet Stress Excessive Alcohol Intake If you or someone you know is experiencing the signs and symptoms of a heart attack, DON???T DELAY. Call immediately and seek help. If someone collapses, perform CPR! Do not attempt to drive if you are having symptoms of heart attack. Hands-Only CPR Why Hands-Only CPR? Hands-Only CPR has been shown to be as effective as conventional CPR for cardiac arrests that occur outside of a hospital. Survival depends on immediately receiving CPR from someone nearby. How do you perform Hands-Only CPR? There are two easy steps: Call if you see a teen or adult collapse Push hard and fast in the center of the chest at a beat of 100 beats per minute. Save a life! 4 WAYS TO GET AHEAD OF SEPSIS SEPSIS is a MEDICAL EMERGENCY. Time matters! Infections put you and your family at risk for a life-threatening condition called sepsis. Sepsis is the body's extreme response to an infection. It is life-threatening, and without timely treatment, sepsis can rapidly lead to tissue damage, organ failure, and . Sepsis happens when an infection you already have-in your skin, lungs, urinary tract or somewhere else-triggers a chain reaction throughout your body. 1 PREVENT INFECTIONS Take good care of chronic conditions. Talk to your doctor about getting the recommended vaccines. 2 PRACTICE GOOD HYGIENE Wash your hands frequently. Keep cuts or open sores clean and covered until they are healed. 3 KNOW THE SYMPTOMS Confusion or disorientation Shortness of breath High heart rate Fever, shivering, or feeling very cold Extreme pain or discomfort Clammy or sweaty skin 4 ACT FAST Get medical care IMMEDIATELY if you suspect sepsis or if you have an infection that is not getting better or is getting worse. To learn more about sepsis and how to prevent infections, visit www.cdc.gov/sepsis. The examination and treatment you have received in the Emergency Department has been done to provide an appropriate evaluation and stabilizing treatment on an emergency basis only. Given the limited resources, it is not meant to be a substitute for complete medical care. The follow-up doctor you named will receive a copy of your records and all test reports. IT IS IMPORTANT THAT YOU SCHEDULE A FOLLOW-UP APPOINTMENT AND ARE RE-EVALUATED. You should report any new complaints, symptoms, or remaining problems at that time. IT IS IMPOSSIBLE FOR THE EMERGENCY DEPARTMENT TO RECOGNIZE AND TREAT ALL ELEMENTS OF INJURY OR ILLNESS IN A SINGLE VISIT. If you have been referred to a specialist physician, it means that we believe you may have a condition that requires the expertise of a specialist. These physicians work in partnership with the hospital and have agreed to see referred patients in their office for further evaluation. KEEP IN MIND THAT THE SPECIALIST HAS HIS/HER OWN OFFICE POLICIES WHICH MAY REQUIRE PROPER INSURANCE OR PAYMENT UP FRONT BEFORE THE SPECIALIST WILL SEE YOU. It is your responsibility to call the specialist physician to make an appointment. We do not have the ability to refer patients to specialists/physicians that work with specific insurance companies. Please be advised that all financial charges or billing practices are determined by that practice, not the hospital. If your insurance company requires that you see a specialist from their approved list, it is your responsibility to contact your insurance company to make those arrangements. It is also your responsibility to follow any other requirements of your insurance company necessary to obtain coverage for claims submitted. We will bill your insurance; however, you are responsible today for any co-pay amounts. You will receive a separate bill for any services you may have received including: emergency, radiology, or pathology physicians. Patient Name:MORALES KNIGHT I have received this information and was given the opportunity to ask questions. Patient/Air Launch Weapons Technician Name: Patient/Air Launch Weapons Technician Signature: Relationship to Patient: Clinician/Hospital Air Launch Weapons Technician Signature: Please Provide a Telephone Number Where You Can Be Reached: Is it Permissible To Leave a Message? Date: documented in this encounter Plan of Treatment Not on file documented as of this encounter Visit Diagnoses Not on filedocumented in this encounter
--- OUTSIDE RECORDS SUMMARY | 2025-09-03 07:56 | XMS_ITS | Encounter Summary ---
Author Organization [employer] ([place], [place], [place], [place], [place]) Address [address] [place] [address] Care Team Providers Care Trust Manager Assistant Name Role Phone Unavailable Primary Care Provider Unavailabl e Encounter Details Date Type Department Care Team (Late st Contact Info) Description 09/15/2019 Transcribed Document [facility] [place] Medicine [facility] [place] [address] ProviderDonald MD [address] [place] [address] Social History Tobacco Use Types [...] Conversion Note - Historical ProviderMD - 09/15/2019 12:41 PM HEALTH COUNSELOR Electronically signed by [facility] Conversion Conflict Resolution Professional Cerner at 02/06/2023 3:06 PM CDT documented in this encounter Plan of Treatment Not on file documented as of this encounter Visit Diagnoses Not on filedocumented in this encounter
--- OUTSIDE RECORDS SUMMARY | 2025-09-03 07:56 | XMS_ITS | Encounter Summary ---
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 History source: Patient. Arrival mode: Private vehicle. History limitation: None. Additional information: Chief Complaint from Nursing Triage Note : Chief Complaint 09/15/2019 9:10 EST Chief Complaint LEFT FLANK PAIN, PT HAD STONES BUSTED LAST WEEK, HAD 3 TO PASS, PAIN STARTED SINCE MONDAY OFF AND ON, . History of Present Illness The patient presents with abdominal pain and flank pain. The onset was 3 days ago. The course/duration of symptoms is worsening. The character of symptoms is sharp. The degree at onset was moderate. The Location of pain at onset was left, lower, abdominal, flank and Patient had ureteral stones last month he was seen by Dr. Kemp and had lithotripsy. He has been passing stones. He saw Dr. Kemp on Monday and xray done advising he still had stones.. The degree at present is moderate. The Location of pain at present is left, lower, abdominal and flank. Radiating pain: left lower quadrant of the abdomen. left flank. The exacerbating factor is none. The relieving factor is none. Therapy today: none. Risk factors consist of recent surgery. Associated symptoms: denies chest pain, denies nausea, denies vomiting, denies diarrhea, denies back pain, denies shortness of breath, denies fever, denies chills, denies headache and denies dizziness. Review of Systems Constitutional symptoms: Negative except as documented in HPI. Skin symptoms: Negative except as documented in HPI. Eye symptoms: Negative except as documented in HPI. ENMT symptoms: Negative except as documented in HPI. Respiratory symptoms: Negative except as documented in HPI. Cardiovascular symptoms: Negative except as documented in HPI. Gastrointestinal symptoms: Abdominal pain, left flank. Genitourinary symptoms: Hematuria. Musculoskeletal symptoms: Negative except as documented in HPI. Neurologic symptoms: Negative except as documented in HPI. Psychiatric symptoms: Negative except as documented in HPI. Endocrine symptoms: Negative except as documented in HPI. Hematologic/Lymphatic symptoms: Negative except as documented in HPI. Allergy/immunologic symptoms: Negative except as documented in HPI. Additional review of systems information: All other systems reviewed and otherwise negative. Health Status Allergies: Allergic Reactions (Selected) No Known Allergies. Past Medical/ Family/ Social History Medical history Reviewed as documented in chart. Genitourinary: renal stone. Surgical history: lithotripsy for kidney stone removal. excision lipoma from back of neck. Vasectomy ([id number]).. Family history: Not significant. Social history: Social & Psychosocial Habits Alcohol 04/28/2017 Alcohol Use History, Social Habits Yes Alcohol Use Frequency Rarely, Socially Home/Environment 11/21/2014 Living situation: Home/Independent Substance Abuse 04/28/2017 Recreational Drug Use Last 12 Months No Tobacco 04/28/2017 Tobacco Use Within Last Twelve Months Snuff/Dip . Problem list: Active Problems (12) At risk for sleep apnea Back pain GERD (gastroesophageal reflux disease) Headache, migraine Hemorrhoids History of shingles Hx of sinusitis Hyperlipidemia Hypertension Kidney stone Seasonal allergies Wears glasses . Physical Examination Vital Signs Vital Signs/Vital Measures 09/15/2019 9:10 EST Systolic Blood Pressure 153 mmHg HI Diastolic Blood Pressure 100 mmHg HI Temperature Source Oral Temperature Mode Fahrenheit Temperature, Fahrenheit 97.9 Deg F Clinical Temperature, C 36.6 Deg C Peripheral Pulse Rate 90 bpm Respiratory Rate 18 Breaths/Min Oxygen Saturation 97 % Oxygen Therapy Mode Room air . Measurements 09/15/2019 9:10 EST Height Source Stated Height Entry Format [place] Height/Length, SUDANESE (ft) 5 ft Height/Length SUDANESE 6 Inch CLINICALHEIGHT 167.64 cm [place] Body Weight 62.88 kg Weight Source, ED Critical estimated dosing weight Weight Entry Format [place] Weight [place] lb 185 lb CLINICALWEIGHT 84.09 kg Body Surface Area (BSA) 1.94 m2 Body Mass Index 29.9 kg/m2 HI . Oxygen Saturation 09/15/2019 9:10 EST Oxygen Saturation 97 % . General: Alert, no acute distress. Skin: Warm, dry, pink. Head: Normocephalic. Neck: Supple. Eye: Normal conjunctiva. Ears, nose, mouth and throat: Oral mucosa moist. Cardiovascular: Regular rate and rhythm, No murmur. Respiratory: Lungs are clear to auscultation, respirations are non-labored, breath sounds are equal. Chest wall: No tenderness, No deformity. Back: Nontender, Normal range of motion, Normal alignment, no step-offs. Musculoskeletal: Normal ROM, normal strength, no tenderness, no swelling. Gastrointestinal: Soft, Nontender, Non distended. Neurological: Alert and oriented to person, place, time, and situation, normal motor observed, normal speech observed, normal coordination observed. Psychiatric: Cooperative, appropriate mood & affect, normal judgment. Medical Decision Making Differential Diagnosis: Abdominal pain. Documents reviewed: Emergency department nurses' notes, emergency department records. Orders Include Previous Orders (Selected) Inpatient Orders Ordered (In-Lab) Culture Urine: Completed .Automated Differential: CBC w/ Auto Diff: CMP Comprehensive Metabolic Panel: CT Abdomen Pelvis WO: ED Adult Fall Risk Assessment: ED Adult Triage: ED C-SSRS: ED Clinical Reconciliation: ED gis mapping technician: Lactic Acid Level with Reflex if Indicated: Normal Saline Bolus: 1,000 mL, 1,000 mL/Hr, IV Piggyback, 1-Time Saline Lock Insert: Urinalysis w Microscopic if Indicated: Zofran: 4 mg, IV Push, 1-Time morphine: 4 mg, IV Push, 1-Time Discontinued phenazopyridine: 95 mg, Oral, 1-Time. Results review: All Results 09/15/2019 9:44 EST Sodium Level 136 mmol/L Potassium Level 4.0 mmol/L Chloride Level 105 mmol/L Carbon Dioxide Level 27 mmol/L Anion Gap 8 LOW Glucose Level 110 mg/dL HI Blood Urea Nitrogen 28 mg/dL HI Creatinine Level 2.00 mg/dL HI eGFR 42 mL/min/1.73m2 LOW eGFR NonAfrican 35 mL/min/1.73m2 LOW Bun/Creatinine 14.0 Calcium Level 8.9 mg/dL Protein Total 7.4 Gram/dL Albumin Level 3.6 Gram/dL Globulin 3.8 Gram/dL A/G Ratio 0.9 LOW Bilirubin Total 1.4 mg/dL HI Alk Phos 93 Units/Liter AST 20 Units/Liter ALT 45 Units/Liter Lactic Acid Level 1.3 mmol/L WBC 12.2 K/uL HI RBC 4.89 Million/uL Hgb 15.0 g/dL Hct 43.2 % MCV 88.3 fL MCH 30.7 pg MCHC 34.7 Gram/dL Platelet Count 200 K/uL MPV 9.7 fL RDW 12.1 % Neut % 79.5 % HI Neut # 9.68 K/uL HI Lymph % 9.0 % LOW Lymph # 1.10 x10(3)/uL Sabine % 9.8 % HI Sabine # 1.20 K/uL HI Eos % 1.0 % Eos # 0.12 x10(3)/uL Baso % 0.3 % Baso # 0.04 x10(3)/uL Slide Review No IG# 0.05 x10(3)/uL IG% 0.40 % Urine Type U CleanCatch Urine Color Aan Urine Appearance Clear Urine Specific Proctor 1.027 Urine pH Dipstick 6.0 Urine Leukocyte Esterase Negative Urine Nitrite Negative Urine Protein Dipstick Negative Urine Glucose Dipstick Negative Urine Ketones Dipstick Negative Urine Urobilinogen Dipstick 0.2 EU/dL Urine Bilirubin Dipstick Negative Urine Blood Dipstick Negative . Radiology results: Radiology Results (Last 48 hours) [id number] -- 09/15/2019 08:53 CT Abdomen Pelvis WO (09/15/2019 11:07) Result: CT SCAN OF THE ABDOMEN AND PELVIS WITHOUT CONTRAST. HISTORY: Left flank pain, kidney stones.COMPARISON: April 28, 2017.PROCEDURE: Axial images were obtained from the lung bases to the pubicsymphysis by computed tomography. This study was performed withtechniques to keep radiation doses as low as reasonably achievable,(ALARA). Individualized dose reduction techniques using automatedexposure control or adjustment of mA and/or kV according to the patientsize were employed.FINDINGS: ABDOMEN: There is a stable noncalcified nodule in the right middle lobe.This measures 3.8 mm and is unchanged from 2017. The heart size isnormal. There is a small hiatal hernia identified. The limitednon-contrast images of the liver demonstrate diffuse fatty infiltration.The gallbladder is unremarkable. The spleen is normal. No adrenal massesare seen. The aorta is normal in caliber. There is no significant freefluid or adenopathy. There is a 3 mm nonobstructing stone in the midright kidney. There is no right hydronephrosis. There are multiple smallstones in the left kidney. These measure up to 4.5 mm. There is mildleft hydronephrosis. A 6.5 mm stone is identified in the mid leftureter. This is at the L3-L4 level.PELVIS: There is a small umbilical hernia containing fat. The appendixis normal. A large amount of stool is identified in the cecum. There ismoderate sigmoid colon diverticulosis. A 5 mm stone is identified at theleft UVJ. The urinary bladder is unremarkable. Prostate gland measuresup to 5 cm. There are prostate calcifications identified. Seminalvesicles are prominent. There is no significant fluid or adenopathy. IMPRESSION: Mild left hydronephrosis secondary to a mid left ureteralstone and a left UVJ stone, as discussed above.Bilateral nephrolithiasis.Films reviewed, interpreted, and dictated by Dr. Valenzuela.Transcribed by Kamini Frederick PA-C.I have personally viewed, interpreted and dictated the examination. Ihave read and agree with the above final transcribed report. . Reexamination/ Reevaluation Time: 09/15/2019 12:39:00 . Course: well controlled, Reports pain free.. Impression and Plan Diagnosis Left ureteral stone - Discharge, Emergency medicine, Medical Plan Condition: Improved, Stable. Disposition: Discharged Admit/Transfer/Discharge: Discharge (Order): Start: 09/15/2019 12:41 EST, Discharge to: Home. Patient was given the following educational materials: Kidney Stones. Follow up with: Patient Resource Center Within 2 to 3 days Please contact the Patient Resource Center at if you need assistance finding a Primary Care Provider or Specialist in the future. Increase fluids. Call urology tomorrow and discuss follow up plan/labs/ct reports. REturn to ER if symptoms worse or different ; LUIZ CONTE Within 2 to 3 days; NAKUL KEMP Within 2 to 3 days. Counseled: Patient, Family, Regarding diagnosis, Regarding diagnostic results, Regarding treatment plan, Patient indicated understanding of instructions. Notes: I certify that the MLP/APPLICATION COUNSELOR performed the services as delegated. , Discussed with Dr. Rivera and agrees with plan of care.. documented in this encounter Plan of Treatment Not on file documented as of this encounter Visit Diagnoses Not on filedocumented in this encounter
--- OUTSIDE RECORDS SUMMARY | 2025-09-03 07:56 | XMS_ITS | Encounter Summary ---
Author Organization [employer] ([place], [place], [place], [place], [place]) Address [address] [place] [address] Care Team Providers Care Banking Attorney Name Role Phone Unavailable Primary Care Provider Unavailabl e Encounter Details Date Type Department Care Team (Late st Contact Info) Description 09/15/2019 Transcribed Document [facility] [place] Family Medicine [facility] [place] [address] ProviderDonald MD [address] [place] [address] Social History Tobacco Use Types Packs/Day Years Used Date Smoking Tobacco: Never Assessed Sex and Gender Information Value Date Recorded Sex Assigned at Male 04/19/2022 3:06 PM CDT Legal Sex Male 3:06 PM CDT Gender Identity Male 04/19/2022 3:06 PM CDT Sexual Orientation Not on file documented as of this encounter Miscellaneous Notes * Cerner Conversion Note - Donald ProviderMD - 09/15/2019 8:53 AM HR ASSISTANT ED Assessment Entered On: 09/15/2019 10:24 EST Performed On: 09/15/2019 10:21 EST by LAURIE MERCADO RN ED Quick Look Assessment Level of Consciousness : Alert, Awake Affect/Behavior : Appropriate, Calm, Cooperative Orientation : Oriented x 4 Skin Temperature : Warm LAURIE MERCADO RN - 09/15/2019 10:21 EST ED General-Functional Assess Information Obtained From : Patient Preferred Communication Mode : Verbal Communication Barrier : None Primary Language : Divehi Any Spiritual/Cultural Needs or Requests : No Currently in Unsafe Situation : No LAURIE MERCADO RN - 09/15/2019 10:21 EST Social Habits Smoking Status : Never (less than 100 in lifetime; none in last 30 days) Smokeless Tobacco Status : Never Desires Tobacco Cessation Calc : 0 LAURIE MERCADO RN - 09/15/2019 10:21 EST Social History (As Of: 09/15/2019 10:24:16 EST) Tobacco: Use in Last 12 Months: Snuff/Dip. (Last Updated: 04/28/2017 07:28:21 EDT by CRISTIANO SONG RN) Alcohol: Alcohol Use History Yes. Alcohol Use Frequency Rarely, Socially. (Last Updated: 04/28/2017 07:28:29 EDT by CRISTIANO SONG, ANAND) Substance Abuse: Use in Last 12 Months: No. (Last Updated: 04/28/2017 07:28:32 EDT by CRISTIANO SONG RN) Home/Environment: Living situation: Home/Independent. (Last Updated: 11/21/2014 09:33:15 EST by NOY HERNANDEZ PA-C) Genitourinary Assessment, ED Genitourinary Assessment WDL : WDL with exceptions (Comment: Pt presents to the ER with flank pain. Hx of kidney stones and lithotripsy. Reports nausea. Abdomen tender and non distended [LAURIE MERCADO RN - 09/15/2019 10:21 EST] ) LAURIE MERCADO RN - 09/15/2019 10:21 EST documented in this encounter Plan of Treatment Not on file documented as of this encounter Visit Diagnoses Not on filedocumented in this encounter
--- OUTSIDE RECORDS SUMMARY | 2025-09-03 07:56 | XMS_ITS | Encounter Summary ---
Author Organization [employer] ([place], [place], [place], [place], [place]) Address [address] [place] [address] Care Team Providers Care Electromechanical Engineer Name Role Phone Unavailable Primary Care Provider Unavailabl e Encounter Details Date Type Department Care Team (Late st Contact Info) Description 08/06/2019 Transcribed Document [facility] [place] [facility] [place] [facility] [place] [address] ProviderDonald MD [address] [place] [address] Social History Tobacco Use Types Packs/Day Years Used Date Smoking Tobacco: Never Assessed Sex and Gender Information Value Date Recorded Sex Assigned at Male 04/19/2022 3:06 PM CDT Legal Sex Male 3:06 PM CDT Gender Identity Male 04/19/2022 3:06 PM CDT Sexual Orientation Not on file documented as of this encounter Miscellaneous Notes * Cerner Conversion Note - Donald ProviderMD - 08/06/2019 10:05 AM CDT Patient: MORALES KNIGHT Age: 53 years Sex: Male : 1965 Associated Diagnoses: None Author: KAYE CARR APRN Chief Complaint R renal stone Review of Systems ROS reviewed as documented in chart no change since last seen by surgeon Health Status Allergies: Allergic Reactions (Selected) No Known Allergies, No qualifying data available Current medications: (Selected) Documented Medications Documented Tums 500 mg oral tablet, chewable: 2 tabs, Chew, PRN: Indigestion, 0 Refill(s) Zantac 75 oral tablet: 1 Tab, Oral, BID, 0 Refill(s) lisinopril 10 mg oral tablet: 1 Tab, Oral, Daily, 1/2 tab, 30 Tab, 0 Refill(s) simvastatin 20 mg oral tablet: 1 Tab, Oral, Daily, 90 Tab, Home Medications (4) Active lisinopril 10 mg oral tablet 10 mg = 1 Tab, Oral, Daily simvastatin 20 mg oral tablet 20 mg = 1 Tab, Oral, Daily Tums 500 mg oral tablet, chewable 2 tabs, PRN, Chew Zantac 75 oral tablet 75 mg = 1 Tab, Oral, BID , No qualifying data available Problem list: All Problems Wears glasses / SNOMED CT 634326727 / Confirmed Seasonal allergies / SNOMED CT 889314309 / Confirmed Headache, migraine / SNOMED CT 68771373 / Confirmed Kidney stone / SNOMED CT 403295485 / Confirmed Hypertension / SNOMED CT 0698345340 / Confirmed Hyperlipidemia / SNOMED CT 90206364 / Confirmed Hemorrhoids / SNOMED CT 372047494 / Confirmed History of shingles / SNOMED CT 691952476 / Confirmed Hx of sinusitis / SNOMED CT 711256285 / Confirmed GERD (gastroesophageal reflux disease) / SNOMED CT 675531724 / Confirmed Back pain / SNOMED CT 037691323 / Confirmed At risk for sleep apnea / IMO [id number] / Confirmed, Active Problems (12) At risk for sleep apnea Back pain GERD (gastroesophageal reflux disease) Headache, migraine Hemorrhoids History of shingles Hx of sinusitis Hyperlipidemia Hypertension Kidney stone Seasonal allergies Wears glasses Histories Past Medical History: No active or resolved past medical history items have been selected or recorded. Family History: No family history items have been selected or recorded. Procedure history: lithotripsy for kidney stone removal. excision lipoma from back of neck. Vasectomy ([id number]). Social History Social & Psychosocial Habits Alcohol 04/28/2017 Alcohol Use History, Social Habits Yes Alcohol Use Frequency Rarely, Socially Home/Environment 11/21/2014 Living situation: Home/Independent Substance Abuse 04/28/2017 Recreational Drug Use Last 12 Months No Tobacco 04/28/2017 Tobacco Use Within Last Twelve Months Snuff/Dip . Physical Examination VS/Measurements Vital Signs/Vital Measures 08/06/2019 10:00 EDT Systolic Blood Pressure 147 mmHg HI Diastolic Blood Pressure 83 mmHg Temperature Source Temporal artery scanning Temperature Mode Fahrenheit Temperature, Fahrenheit 97.3 Deg F Clinical Temperature, C 36.3 Deg C Heart Rate Monitored 65 bpm Respiratory Rate 20 Breaths/Min Oxygen Saturation 97 % Oxygen Therapy Mode Room air , Vitals Signs (last 24 hrs) Last Charted Minimum Maximum Temp 97.3 (AUG 06 10:00) 97.3 (AUG 06 10:00) 97.3 (AUG 06 10:00) Mon HR 65 (AUG 06 10:00) 65 (AUG 06 10:00) 65 (AUG 06 10:) Resp Rate 20 (AUG 06 10:00) 20 (AUG 06 10:00) 20 (AUG 06 10:00) SBP H 147 (AUG 06 10:00) H 147 (AUG 06:00) H 147 (AUG 06:) DBP 83 (AUG 06:) 83 (AUG 06 10:) 83 (AUG 06 10:00) SpO2 97 (AUG 06:) 97 (AUG 06 10:00) 97 (AUG 06 10:) , Measurements from flowsheet : Measurements 08/06/2019 10:46 EDT Height Source Measured Height Entry Format [place] Height/Length QATARI 66 Inch CLINICALHEIGHT 167.64 cm [place] Body Weight 63 kg Weight Source Standing scale Weight Entry Format [place] Weight Setswana lb 197 lb CLINICALWEIGHT 89.55 kg Body Surface Area (BSA) 1.99 m2 Body Mass Index 31.9 kg/m2 HI General: Alert and oriented, No acute distress. Eye: Pupils are equal, round and reactive to light, Extraocular movements are intact. HENT: Normocephalic, Normal hearing. Neck: Supple, Non-tender. Respiratory: Lungs are clear to auscultation, Respirations are non-labored. Cardiovascular: Normal rate, Regular rhythm, No murmur, No gallop, No edema. Gastrointestinal: Soft, Non-tender. Genitourinary: No costovertebral angle tenderness. Lymphatics: No lymphadenopathy neck, axilla, groin. Musculoskeletal: Normal range of motion, Normal strength. Integumentary: Warm, Dry, [place]. Neurologic: Alert, Oriented. Psychiatric: Cooperative, Appropriate mood & affect. Review / Management Results review: No qualifying data available. Impression and Plan Condition: Stable. documented in this encounter Plan of Treatment Not on file documented as of this encounter Visit Diagnoses Not on filedocumented in this encounter
--- OUTSIDE RECORDS SUMMARY | 2025-09-03 07:56 | XMS_ITS | Clinical Summary ---
Author Organization [employer] ([place], [place], [place], [place], [place]) Address [address] [place] [address] Care Team Providers Care System Consultant Name Role Phone Unavailable Primary Care Provider Unavailabl e Social History Tobacco Use Types Packs/Day Years Used Date Smoking Tobacco: Never Assessed Sex and Gender Information Value Date Recorded Sex Assigned at Male 04/19/2022 3:06 PM CDT Legal Sex Male 3:06 PM CDT Gender Identity Male 04/19/2022 3:06 PM CDT Sexual Orientation Not on file Plan of Treatment Not on file
--- OUTSIDE RECORDS SUMMARY | 2025-09-03 07:56 | XMS_ITS | Encounter Summary ---
Author Organization [employer] ([place], [place], [place], [place], [place]) Address [address] [place] [address] Care Team Providers Care Plumbing Hardware Assembler Name Role Phone Unavailable Primary Care Provider Unavailabl e Encounter Details Date Type Department Care Team (Late st Contact Info) Description 09/18/2019 Transcribed Document [facility] [place] Family Medicine [facility] [place] [address] ProviderDonald MD [address] [place] [address] Social History Tobacco Use Types [...] Conversion Note - Historical ProviderMD - 09/18/2019 9:41 PM TOLL RELIEF OPERATOR ED Triage Entered On: 09/18/2019 22:10 EST Performed On: 09/18/2019 22:08 EST by Cris Weiner RN ED Triage Across the Room Chief Complaint : pt via lobby c/o kidney stones. pt states he was seen here on monday and told he had 3 stones. pt has hx of same. Triage Date/Time : 09/18/2019 22:08 EST Cris Weiner RN - 09/18/2019 22:08 EST DCP GENERIC CODE Tracking Acuity : 3 - Urgent Tracking Group : [facility] ED Cris Weiner RN - 09/18/2019 22:08 EST Mode of Arrival : Ambulatory Transported to ED by : Private vehicle To Room Via : Wheelchair Accompanied By : Spouse ED Vital Signs : Document Height & Weight : Document ED Allergies : Document ED Reason for Visit : Document Cris Weiner RN - 09/18/2019 22:08 EST Infectious Disease History Infectious Disease History : Chicken pox/Shingles, Influenza, Measles, Mumps Fever/Chills Last 48 Hours : No Travel To Regions with Travel Advisories : No Travel Outside [place] Within Last 30 Days : No Contact With Traveler to Advisory Region : No Tuberculosis Symptoms : None Cris Weiner RN - 09/18/2019 22:08 EST Vital Signs ED Temperature Source : Oral Temperature Mode : Fahrenheit Cris Weiner RN - 09/18/2019 22:08 EST Allergy (As Of: 09/18/2019 22:10:36 EST) Allergies (Active) No Known Allergies Estimated Onset Date: Unspecified ; Created By: CONTRIBUTOR_SYSTEMHEBER; Reaction Status: Active ; Category: Drug ; Substance: No Known Allergies ; Type: Allergy ; Updated By: JOSE ROBERTO_HEBER TAMAYO; Reviewed Date: 09/18/2019 22:09 EST Diagnosis Control ED (As Of: 09/18/2019 22:10:36 EST) Problems(Active) At risk for sleep apnea (IMO :78505485 ) Name of Problem: At risk for sleep apnea ; Recorder: SYSTEM, SYSTEM; Confirmation: Confirmed ; Classification: Medical ; Code: [id number] ; Last Updated: 08/06/2019 10:49 EDT ; Life Cycle Date: 08/06/2019 ; Life Cycle Status: Active ; Vocabulary: IMO Back pain (SNOMED CT :860676402 ) Name of Problem: Back pain ; Recorder: GLYNN ALVA RN; Confirmation: Confirmed ; Classification: Medical ; Code: [id number] ; Contributor System: [facility] ; Last Updated: 12/11/2014 6:35 EST ; Life Cycle Date: 12/11/2014 ; Life Cycle Status: Active ; Vocabulary: SNOMED CT GERD (gastroesophageal reflux disease) (SNOMED CT :527656444 ) Name of Problem: GERD (gastroesophageal reflux disease) ; Recorder: GLYNN ALVA RN; Confirmation: Confirmed ; Classification: Medical ; Code: [id number] ; Contributor System: [employer] ; Last Updated: 12/11/2014 6:33 EST ; Life Cycle Date: 12/11/2014 ; Life Cycle Status: Active ; Vocabulary: SNOMED CT Headache, migraine (SNOMED CT :53770731 ) Name of Problem: Headache, migraine ; Recorder: GLYNN ALVA RN; Confirmation: Confirmed ; Classification: Medical ; Code: 93376444 ; Contributor System: [employer] ; Last Updated: 12/11/2014 6:34 EST ; Life Cycle Date: 12/11/2014 ; Life Cycle Status: Active ; Vocabulary: SNOMED CT Hemorrhoids (SNOMED CT :658489629 ) Name of Problem: Hemorrhoids ; Recorder: GLYNN ALVA RN; Confirmation: Confirmed ; Classification: Medical ; Code: 094970597 ; Contributor System: [employer] ; Last Updated: 12/11/2014 6:34 EST ; Life Cycle Date: 12/11/2014 ; Life Cycle Status: Active ; Vocabulary: SNOMED CT History of shingles (SNOMED CT :805803838 ) Name of Problem: History of shingles ; Recorder: GLYNN ALVA RN; Confirmation: Confirmed ; Classification: Medical ; Code: 284599583 ; Contributor System: [employer] ; Last Updated: 12/11/2014 6:36 EST ; Life Cycle Date: 12/11/2014 ; Life Cycle Status: Active ; Vocabulary: SNOMED CT Hx of sinusitis (SNOMED CT :136241020 ) Name of Problem: Hx of sinusitis ; Recorder: GLYNN ALVA RN; Confirmation: Confirmed ; Classification: Medical ; Code: [id number] ; Contributor System: [employer] ; Last Updated: 12/11/2014 6:32 EST ; Life Cycle Date: 12/11/2014 ; Life Cycle Status: Active ; Vocabulary: SNOMED CT Hyperlipidemia (SNOMED CT :98375974 ) Name of Problem: Hyperlipidemia ; Recorder: GLYNN ALVA RN; Confirmation: Confirmed ; Classification: Medical ; Code: 89987702 ; Contributor System: [employer] ; Last Updated: 12/11/2014 6:35 EST ; Life Cycle Date: 12/11/2014 ; Life Cycle Status: Active ; Vocabulary: SNOMED CT Hypertension (SNOMED CT :0642349305 ) Name of Problem: Hypertension ; Recorder: GLYNN ALVA RN; Confirmation: Confirmed ; Classification: Medical ; Code: [id number] ; Contributor System: [employer] ; Last Updated: 12/11/2014 6:32 EST ; Life Cycle Date: 12/11/2014 ; Life Cycle Status: Active ; Vocabulary: SNOMED CT Kidney stone (SNOMED CT :755769709 ) Name of Problem: Kidney stone ; Recorder: GLYNN ALVA RN; Confirmation: Confirmed ; Classification: Medical ; Code: 066101080 ; Contributor System: [employer] ; Last Updated: 12/11/2014 6:31 EST ; Life Cycle Date: 12/11/2014 ; Life Cycle Status: Active ; Vocabulary: SNOMED CT Seasonal allergies (SNOMED CT :383176169 ) Name of Problem: Seasonal allergies ; Recorder: GLYNN ALVA RN; Confirmation: Confirmed ; Classification: Medical ; Code: 811928080 ; Contributor System: [employer] ; Last Updated: 12/11/2014 6:32 EST ; Life Cycle Date: 12/11/2014 ; Life Cycle Status: Active ; Vocabulary: SNOMED CT Wears glasses (SNOMED CT :860137899 ) Name of Problem: Wears glasses ; Recorder: GLYNN ALVA RN; Confirmation: Confirmed ; Classification: Medical ; Code: 660350852 ; Contributor System: [employer] ; Last Updated: 12/11/2014 6:31 EST ; Life Cycle Date: 12/11/2014 ; Life Cycle Status: Active ; Vocabulary: SNOMED CT Diagnoses(Active) Flank pain Date: 09/18/2019 ; Diagnosis Type: Reason For Visit ; Confirmation: Complaint of ; Clinical Dx: Flank pain ; Classification: Medical ; Clinical Service: Non-Specified ; Code: PNED ; Probability: 0 ; Diagnosis Code: [id number] Urination painful Date: 09/18/2019 ; Diagnosis Type: Reason For Visit ; Confirmation: Complaint of ; Clinical Dx: Urination painful ; Classification: Medical ; Clinical Service: Non-Specified ; Code: PNED ; Probability: 0 ; Diagnosis Code: [id number] ED Height and Weight Height Source : Stated Height Entry Format : [place] Height, Feet : 5 ft(Converted to: 152 cm, 60 Inch) Height, Inches : 6 Inch(Converted to: 0 ft 6 Inch, 15.24 cm) Clinical Height : 167.64 cm Weight Source, ED : Critical estimated dosing weight Weight Entry Format : [place] Weight, Pounds : 185 lb Clinical Dosing Weight : 84.09 kg Body Surface Area (BSA) : 1.94 m2 Body Mass Index : 29.9 kg/m2 (HI) [place] Body Weight (IBW) : 62.88 kg Cris Weiner RN - 09/18/2019 22:08 EST documented in this encounter Plan of Treatment Not on file documented as of this encounter Visit Diagnoses Not on filedocumented in this encounter
--- OUTSIDE RECORDS SUMMARY | 2025-09-03 07:56 | XMS_ITS | Encounter Summary ---
Author Organization [employer] ([place], [place], [place], [place], [place]) Address [address] [place] [address] Care Team Providers Care Food Processor Name Role Phone Unavailable Primary Care Provider Unavailabl e Encounter Details Date Type Department Care Team (Late st Contact Info) Description 09/18/2019 Transcribed Document [facility] [place] [facility] [place] [address] ProviderDonald MD [address] [place] [address] Social History Tobacco Use Types [...] - Historical ProviderMD - 09/18/2019 9:41 PM CLINICAL TRIALS DATA COORDINATOR ED Assessment Entered On: 09/18/2019 23:05 EST Performed On: 09/18/2019 23:03 EST by Cris Weiner RN ED Quick Look Assessment Level of Consciousness : Alert, Awake Affect/Behavior : Appropriate, Calm, Cooperative Orientation : Oriented x 4 Skin Temperature : Warm Skin Description : Normal for ethnicity Cris Weiner RN - 09/18/2019 23:03 EST ED General-Functional Assess Information Obtained From : Patient Preferred Communication Mode : Verbal Communication Barrier : None Primary Language : Kiswahili Any Spiritual/Cultural Needs or Requests : No Currently in Unsafe Situation : No Cris Weiner RN - 09/18/2019 23:03 EST Social Habits Smoking Status : Never (less than 100 in lifetime; none in last 30 days) Smokeless Tobacco Status : Never Desires Tobacco Cessation Calc : 0 Cris Weiner RN - 09/18/2019 23:03 EST Social History (As Of: 09/18/2019 23:05:54 EST) Tobacco: Use in Last 12 Months: [...] 11/21/2014 09:33:15 EST by NOY HERNANDEZ PA-C) Cardiovascular ASMT, ED Cardiovascular Assessment WDL : Cris Lin RN - 09/18/2019 23:03 EST Gastrointestinal ED Gastrointestinal Assessment WDL : WDL Cris Weiner RN - 09/18/2019 23:03 EST Genitourinary Assessment, ED Genitourinary Assessment WDL : WDL with exceptions (Comment: pt c/o burning with urination, and bilateral flank pain. pt states he was seen here on monday and was told he had 3 kidney stones. pt states pain has not decreased. pt denies any blood in urine. [Cris Weiner RN - 09/18/2019 23:03 EST] ) Genitourinary Symptoms : Burning with urination Cris Weiner RN - 09/18/2019 23:03 EST documented in this encounter Plan of Treatment Not on file documented as of this encounter Visit Diagnoses Not on filedocumented in this encounter
--- OUTSIDE RECORDS SUMMARY | 2025-09-03 07:56 | XMS_ITS | Encounter Summary ---
Author Organization [employer] ([place], [place], [place], [place], [place]) Address [address] [place] [address] Care Team Providers Care Food Service Substitute Name Role Phone Unavailable Primary Care Provider Unavailabl e Encounter Details Date Type Department Care Team (Late st Contact Info) Description 09/18/2019 Transcribed Document [facility] [place] Family Medicine [facility] [place] [address] ProviderDonald MD [address] [place] [address] Social History Tobacco Use Types [...] Conversion Note - Historical ProviderMD - 09/18/2019 11:40 PM ASSISTANT CENTER MANAGER Electronically signed by Tito [facility] Conversion Career Services Director Cerner at 02/06/2023 2:46 PM CDT documented in this encounter Plan of Treatment Not on file documented as of this encounter Visit Diagnoses Not on filedocumented in this encounter
--- OUTSIDE RECORDS SUMMARY | 2025-09-03 07:56 | XMS_ITS | Encounter Summary ---
Author Organization [email or web address] ([place], [place], [place], [place], [place]) Address [address] [place] [address] Care Team Providers Care Mail Processing Clerk Name Role Phone Unavailable Primary Care Provider Unavailabl e Encounter Details Date Type Department Care Team (Late st Contact Info) Description 08/06/2019 Transcribed Document [facility] [place] Family Medicine [facility] [place] [address] ProviderDonald MD [address] [place] [address] Social History Tobacco Use Types [...] Conversion Note - Donald ProviderMD - 08/06/2019 1:02 PM CDT [facility] Main OR PostOp Summary Primary Physician: NAKUL ROCHE MD-URO Finalized Date/Time: 08/06/19 16:36:36 Pt. Name: MORALES KNIGHT /Sex: 1965 Male Med Rec #: [id number] Physician: NAKUL ROCHE MD-URO Financial #: [id number] Pt. Type: O Room/Bed: Admit/Disch: 08/06/19 09:13:00 - Institution: [facility] Main OR PostOp Case Times Entry 1 In PACU II 08/06/19 15:03:00 Ready for PACU II 08/06/19 16:20:00 Discharge Discharge from PACU 08/06/19 16:20:00 II Last Modified By: JORGE PATE RN 08/06/19 16:36:34 [facility] Main OR PostOp Case Times Audit 08/06/19 16:36:34 Line Clearance Foreman: COILP Modifier: COILP <+> 1 Ready for PACU II Discharge <+> 1 Discharge from PACU II Finalized By: JORGE PATE RN Document Signatures Signed By: JORGE PATE RN 08/06/19 16:36 Electronically signed by Tito [facility] Conversion Collar Turner Cerner at 02/06/2023 3:09 PM CDT documented in this encounter Plan of Treatment Not on file documented as of this encounter Visit Diagnoses Not on filedocumented in this encounter
--- OUTSIDE RECORDS SUMMARY | 2025-09-03 07:56 | XMS_ITS | Encounter Summary ---
Author Organization [employer] ([place], [place], [place], [place], [place]) Address [address] [place] [address] Care Team Providers Care Repairer Maintenance Building Name Role Phone Unavailable Primary Care Provider Unavailabl e Encounter Details Date Type Department Care Team (Late st Contact Info) Description 09/15/2019 Transcribed Document [facility] [place] [address] [place] [address] ProviderDonald MD [address] [id number] Social History Tobacco Use Types Packs/Day Years Used Date Smoking Tobacco: Never Assessed Sex and Gender Information Value Date Recorded Sex Assigned at Male 04/19/2022 3:06 PM CDT Legal Sex Male 3:06 PM CDT Gender Identity Male 04/19/2022 3:06 PM CDT Sexual Orientation Not on file documented as of this encounter Miscellaneous Notes * Cerner Conversion Note - Historical ProviderMD - 09/15/2019 12:48 PM SENIOR PATROL AGENT ED Discharge Entered On: 09/15/2019 12:48 EST Performed On: 09/15/2019 12:48 EST by LAURIE MERCADO RN Discharge Process Patient Disposition : Discharge Personal Belongings With Patient : Yes Patient Education Completed : Yes Teaching Evaluation : Verbalizes understanding IV Discontinued : Yes Nursing Documentation Completed : Yes LAURIE MERCADO RN - 09/15/2019 12:48 EST ED Discharge Discharge To : Home without planned follow-up Mode Of Departure : Ambulatory Discharge Instructions Reviewed With, Opportunity For Questions Given : Patient LAURIE MERCADO RN - 09/15/2019 12:48 EST Electronically signed by Sharif Francis Conversion Ordnance Truck Installation Mechanic Cerner at 02/06/2023 3:10 PM CDT documented in this encounter Plan of Treatment Not on file documented as of this encounter Visit Diagnoses Not on filedocumented in this encounter
--- OUTSIDE RECORDS SUMMARY | 2025-09-03 07:56 | XMS_ITS | Encounter Summary ---
Author Organization [employer] ([place], [place], [place], [place], [place]) Address [address] [place] [address] Care Team Providers Care Certified Nuclear Medicine Technologist Name Role Phone Unavailable Primary Care Provider Unavailabl e Encounter Details Date Type Department Care Team (Late st Contact Info) Description 08/06/2019 Transcribed Document [facility] [place] [facility] [place] [address] ProviderDonald MD [address] [place] [address] Social History Tobacco Use Types [...] Donald ProviderMD - 08/06/2019 1:02 PM CDT [facility] Main OR PACU Summary Primary Physician: NAKUL ROCHE MD-URO Finalized Date/Time: 08/06/19 15:05:53 Pt. Name: MORALES KNIGHTE /Sex: 1965 Male Med Rec #: [id number] Physician: NAKUL ROCHE MD-URO Financial #: [id number] Pt. Type: O Room/Bed: Admit/Disch: 08/06/19 09:13:00 - Institution: [facility] Main OR PACU I Case Times Entry 1 In PACU I 08/06/19 14:09:00 Ready for PACU 08/06/19 15:00:00 Discharge Discharge from PACU 08/06/19 15:00:00 I Last Modified By: PAULA SNEED RN 08/06/19 15:05:36 Finalized By: PAULA SNEED RN Document Signatures Signed By: PAULA SNEED RN 08/06/19 15:05 Electronically signed by Tito [facility] Conversion Crisis Worker Cerner at 02/06/2023 3:05 PM CDT documented in this encounter Plan of Treatment Not on file documented as of this encounter Visit Diagnoses Not on filedocumented in this encounter
--- OUTSIDE RECORDS SUMMARY | 2025-09-03 07:56 | XMS_ITS | Encounter Summary ---
Author Organization [employer] ([place], [place], [place], [place], [place]) Address [address] [place] [address] Care Team Providers Care Cloth Sander Name Role Phone Unavailable Primary Care Provider Unavailabl e Encounter Details Date Type Department Care Team (Late st Contact Info) Description 09/18/2019 Transcribed Document [facility] [place] Family Medicine [facility] [place] [address] ProviderDonald MD [address] [place] [address] Social History Tobacco Use Types [...] Conversion Note - Historical ProviderMD - 09/18/2019 10:16 PM PAD TUFTER Patient: MORALES KNIGHT Age: 53 years Sex: Male : 1965 Associated Diagnoses: Dysuria; Hematuria; Left flank pain; Hydroureteronephrosis; Calculus, ureteral Author: DEVAN SEE PA Basic Information Additional information: Patient's physician(s): LUIZ CONTE (REF), -INT, Chief Complaint from Nursing Triage Note : Chief Complaint 09/18/2019 22:08 EST Chief Complaint pt via lobby c/o kidney stones. pt states he was seen here on monday and told he had 3 stones. pt has hx of same. . History of Present Illness Patient is a 53-year-old male presents emergency room today with complaints of left flank pain. Patient states that approximately 12:30 this afternoon he began to experience pain in his left flank. Patient has history of kidney stones and was seen in evaluated this facility on 09/15/[address] of his abdomen and pelvis revealed mild left hydronephrosis secondary to a mid-left ureteral stone and left ureteral stone. Patient states that since being seen he was doing well and that his pain returned today. He reports that his pain is worse with movement and he is tender to palpation sharing that his pain radiates to his groin. He denies anything specific that helps to make his symptoms better. He he reports associated symptoms of nausea and vomiting. Patient is followed by Dr. Kemp for Urology Review of Systems Constitutional symptoms: No fever, no chills. Respiratory symptoms: No shortness of breath, Cardiovascular symptoms: No chest pain, Gastrointestinal symptoms: Abdominal pain, severe, left flank, nausea, vomiting, no diarrhea, no constipation. Genitourinary symptoms: Dysuria, hematuria. Additional review of systems information: All other systems reviewed and otherwise negative. Health Status Allergies: Allergic Reactions (Selected) No Known Allergies. Medications: (Selected) Inpatient Medications Ordered NaCl 0.9% bolus: 1,000 mL, 1,000 mL/Hr, IV Piggyback, 1-Time Zofran: 4 mg, IV Push, 1-Time morphine: 4 mg, IV Push, 1-Time Documented Medications Documented Tums 500 mg oral tablet, chewable: 2 tabs, Chew, PRN: Indigestion, 0 Refill(s) Zantac 75 oral tablet: 1 Tab, Oral, BID, 0 Refill(s) lisinopril 10 mg oral tablet: 1 Tab, Oral, Daily, 1/2 tab, 30 Tab, 0 Refill(s) simvastatin 20 mg oral tablet: 1 Tab, Oral, Daily, 90 Tab. Past Medical/ Family/ Social History Surgical history: lithotripsy for kidney stone removal. excision lipoma from back of neck. Vasectomy ([id number]).. Family history: No family history items have been selected or recorded.. Social history: Social & Psychosocial Habits Alcohol [...] Physical Examination Vital Signs Vital Signs/Vital Measures 09/18/2019 22:08 EST Temperature Source Oral Temperature Mode Fahrenheit 09/18/2019 22:03 EST Blood Pressure Location Arm, right upper Blood Pressure Source Non-Invasive BP Device Systolic Blood Pressure 136 mmHg Diastolic Blood Pressure 94 mmHg HI Temperature Source Oral Temperature Mode Fahrenheit Temperature, Fahrenheit 98.4 Deg F Clinical Temperature, C 36.9 Deg C Peripheral Pulse Rate 85 bpm Respiratory Rate 17 Breaths/Min Oxygen Saturation 98 % Oxygen Therapy Mode Room air . Measurements 09/18/2019 22:08 EST Height Source Stated Height Entry Format Alva Height/Length, SOMALI (ft) 5 ft Height/Length SOMALI 6 Inch CLINICALHEIGHT 167.64 cm [place] Body Weight 62.88 kg Weight Source, ED Critical estimated dosing weight Weight Entry Format Alva Weight Cambodian lb 185 lb CLINICALWEIGHT 84.09 kg Body Surface Area (BSA) 1.94 m2 Body Mass Index 29.9 kg/m2 HI . Oxygen Saturation 09/18/2019 22:03 EST Oxygen Saturation 98 % . General: Alert, moderate distress. Skin: Warm, dry. Head: Normocephalic, atraumatic. Neck: Supple. Eye: Normal conjunctiva. Ears, nose, mouth and throat: Oral mucosa moist. Cardiovascular: Regular rate and rhythm. Respiratory: Respirations are non-labored. Gastrointestinal: Soft, Tenderness: Moderate, left flank, Guarding: Minimal, Rebound: Negative. Neurological: Alert and oriented to person, place, time, and situation, No focal neurological deficit observed. Psychiatric: Cooperative. Medical Decision Making Rationale: Patient presents to ED with complaints of left flank pain with known ureteral stone. Stone confirmed in distal ureter with minimal movement since prior scan. Patient responded well to IV fluids, pain medication and antiemetics. Patient desires to return to home for symptomatic management. Instructed to follow-up with urology.Patient is afebrile, nontoxic appearing, vital signs stable and able to maintain O2 sats of 98% on room air. Patient will be discharged home with outpatient follow up to their primary care provider and urology is recommended. Patient is agreeable to plan of care of outpatient follow up, provided clear return precautions and demonstrated understanding. . Documents reviewed: Emergency department nurses' notes, emergency department records, prior records. Orders Include Previous Orders (Selected) Inpatient Orders Ordered Discharge: morphine: 4 mg, IV Push, 1-Time Completed .Automated Differential: .Urinalysis Microscopic: CBC w/ Auto Diff: CMP Comprehensive Metabolic Panel: CT Abdomen Pelvis WO: ED Adult Fall Risk Assessment: ED Adult Triage: ED Clinical Reconciliation: ED welder plasma arc: NaCl 0.9% bolus: 1,000 mL, 1,000 mL/Hr, IV Piggyback, 1-Time Saline Lock Insert: Urinalysis w Microscopic: Zofran: 4 mg, IV Push, 1-Time morphine: 4 mg, IV Push, 1-Time Prescriptions Prescribed Flomax 0.4 mg oral capsule: 1 Cap, Oral, Daily, for 7 Day(s), 7 Cap, 0 Refill(s) [place] 7.5 mg-325 mg oral tablet: 1 Tab, Oral, Q6H, for 3 Day(s), PRN: for pain, 12 Tab, 0 Refill(s). Results review: Lab results : Lab Results 09/18/2019 22:50 EST Sodium Level 136 mmol/L Potassium Level 4.7 mmol/L Chloride Level 107 mmol/L Carbon Dioxide Level 23 mmol/L Anion Gap 11 Glucose Level 114 mg/dL HI Blood Urea Nitrogen 27 mg/dL HI Creatinine Level 1.70 mg/dL HI eGFR 51 mL/min/1.73m2 LOW eGFR NonAfrican 42 mL/min/1.73m2 LOW Bun/Creatinine 15.9 Calcium Level 9.3 mg/dL Protein Total 8.2 Gram/dL Albumin Level 3.9 Gram/dL Globulin 4.3 Gram/dL A/G Ratio 0.9 LOW Bilirubin Total 0.8 mg/dL Alk Phos 118 Units/Liter AST 36 Units/Liter ALT 77 Units/Liter HI WBC 14.0 K/uL HI RBC 5.16 Million/uL Hgb 15.6 g/dL Hct 45.5 % MCV 88.2 fL MCH 30.2 pg MCHC 34.3 Gram/dL Platelet Count 270 K/uL MPV 10.1 fL RDW 11.8 % Neut % 83.1 % HI Neut # 11.64 K/uL HI Lymph % 8.6 % LOW Lymph # 1.21 x10(3)/uL [place] % 6.6 % [place] # 0.93 K/uL Eos % 0.7 % Eos # 0.10 x10(3)/uL Baso % 0.6 % Baso # 0.08 x10(3)/uL Slide Review No IG# 0.06 x10(3)/uL HI IG% 0.40 % Urine Type U CleanCatch Urine Color Ana Urine Appearance Clear Urine Specific [place] >1.030 HI Urine pH Dipstick 5.5 LOW Urine Leukocyte Esterase Negative Urine Nitrite Negative Urine Protein Dipstick 30 Urine Glucose Dipstick Negative Urine Ketones Dipstick Trace Urine Urobilinogen Dipstick 0.2 EU/dL Urine Bilirubin Dipstick Negative Urine Blood Dipstick Large Ur RBC 20-50 /HPF Ur WBC 2-5 /HPF Ur Bacteria Trace . Radiology results: Radiology Results (Last 48 hours) [id number] -- 09/18/2019 21:41 CT Abdomen Pelvis WO (09/18/2019 22:30) Result: CT OF THE ABDOMEN AND PELVIS WITHOUT CONTRASTHISTORY: Left flank pain.PROCEDURE: Routine axial images were obtained from the lung bases tothe pubic symphysis. No contrast was given. This study was performedwith techniques to keep radiation doses as low as reasonably achievable,(ALARA). Individualized dose reduction techniques using automatedexposure control or adjustment of mA and/or kV according to the patientsize were employed.COMPARISON: 09/15/2019FINDINGS: Abdomen: The gallbladder is unremarkable. Again seen are bilateralnonobstructing renal calculi, one on the right and 3 on the left side.There is persistent left hydroureteronephrosis secondary to a 5 mmcalculus in the mid-distal ureter. This calculus has migrated distally afew centimeters since the recent examination. The right ureter isnormal. The other solid organs are unremarkable. There is left-sideddiverticulosis. The GI tract is otherwise unremarkable, including theappendix.Pelvis: The urinary bladder is unremarkable. There is no pelvic orabdominal ascites, adenopathy, or acute osseous abnormality.IMPRESSION: Persistent left hydroureteronephrosis secondary to a 5 mmcalculus in the mid-distal ureter which has migrated only a fewcentimeters since the prior examination. . Impression and Plan Diagnosis Dysuria - Discharge, Medical Hydroureteronephrosis - Discharge, Medical Calculus, ureteral - Discharge, Medical Hematuria - Discharge, Medical Left flank pain - Discharge, Medical Plan Condition: Improved, Stable. Disposition: Medically cleared, Discharged Admit/Transfer/Discharge: Discharge (Order): Start: 09/18/2019 23:37 EST, Discharge to: Home. Prescriptions: Prescription Tooth Cutter [facility]: [place] 7.5 mg-325 mg oral tablet (Prescribe): 1 Tab, Oral, Q6H, for 3 Day(s), PRN: for pain, 12 Tab, 0 Refill(s) Flomax 0.4 mg oral capsule (Prescribe): 1 Cap, Oral, Daily, for 7 Day(s), 7 Cap, 0 Refill(s). Patient was given the following educational materials: Kidney Stones, Flank Pain, Adult. Follow up with: LUIZ CONTE Within 2 to 3 days Call for follow up appointment Follow-up as instructed Return if condition worsens Symptomatic care is recommended. Take all medications as prescribed and instructed. ; NAKUL KEMP Within 2 to 3 days Call for follow up appointment with UROLOGY Follow-up as instructed Return if condition worsens. Counseled: Patient, Regarding diagnosis, Regarding diagnostic results, Regarding treatment plan, Regarding prescription, Patient indicated understanding of instructions. Notes: I certify that the Physician Antenna Rigger performed the services as delegated. I agree with the assessment, treatment plan and disposition of the patient as recorded by the Physician Antenna Rigger, Dr. Lao. documented in this encounter Plan of Treatment Not on file documented as of this encounter Visit Diagnoses Not on filedocumented in this encounter
--- OUTSIDE RECORDS SUMMARY | 2025-09-03 07:56 | XMS_ITS | Referral Summary ---
Author Organization [employer] ([place], [place], [place], [place], [place]) Address [address] [place] [address] Care Team Providers Care Recreational Assistant Name Role Phone Unavailable Primary Care [...]
--- OUTSIDE RECORDS SUMMARY | 2025-09-03 07:56 | XMS_ITS | Encounter Summary ---
Author Organization [employer] ([place], [place], [place], [place], [place]) Address [address] [place] [address] Care Team Providers Care Bag Making Machine Tender Name Role Phone Unavailable Primary Care Provider Unavailabl e Encounter Details Date Type Department Care Team (Late st Contact Info) Description 09/15/2019 Transcribed Document [facility] [place] Family Medicine Count includes the [facility] [place] [address] ProviderDonald MD [address] [place] [address] Social History Tobacco Use Types [...] Conversion Note - Historical ProviderMD - 09/15/2019 9:24 AM CLINICAL DATA MANAGEMENT DIRECTOR Pain Assessment Entered On: 09/15/2019 10:20 EST Performed On: 09/15/2019 10:20 EST by LAURIE MERCADO RN Intervention Information: morphine Performed by LAURIE MERCADO RN on 09/15/2019 09:44:00 EST morphine,4mg IV Push,Left Antecubital Bria Pain Assessment Pain Assessment : Follow-up assessment Pain Scale Used : 0-10 Scale LAURIE MERCADO RN - 09/15/2019 10:20 EST Pain Scale Intensity : 2 LAURIE MERCADO RN - 09/15/2019 10:20 EST Image 4 - Images currently included in the form version of this document have not been included in the text rendition version of the form. Electronically signed by Marilu Francis Conversion Geospatial Applications Developer [employer] at 02/06/2023 3:05 PM CDT documented in this encounter Plan of Treatment Not on file documented as of this encounter Visit Diagnoses Not on filedocumented in this encounter
--- OUTSIDE RECORDS SUMMARY | 2025-09-03 07:56 | XMS_ITS | Encounter Summary ---
Author Organization [employer] ([place], [place], [place], [place], [place]) Address [address] [place] [address] Care Team Providers Care Apartment Property Manager Name Role Phone Unavailable Primary Care Provider Unavailabl e Encounter Details Date Type Department Care Team (Late st Contact Info) Description 09/19/2019 Transcribed Document [facility] [place] [facility] [place] [address] ProviderDonald MD [address] [place] [address] Social History Tobacco Use Types Packs/Day Years Used Date Smoking Tobacco: Never Assessed Sex and Gender Information Value Date Recorded Sex Assigned at Male 04/19/2022 3:06 PM CDT Legal Sex Male 3:06 PM CDT Gender Identity Male 04/19/2022 3:06 PM CDT Sexual Orientation Not on file documented as of this encounter Miscellaneous Notes * Cerner Conversion Note - Historical ProviderMD - 09/19/2019 12:01 AM APPLICATION ARCHITECT ED Discharge Entered On: 09/19/2019 0:02 EST Performed On: 09/19/2019 0:01 EST by Cris Weiner RN Discharge Process Patient Disposition : Discharge Personal Belongings With Patient : Yes Patient Education Completed : Yes Teaching Evaluation : Verbalizes understanding IV Discontinued : Yes Nursing Documentation Completed : Yes Cris Weiner RN - 09/19/2019 0:01 EST ED Discharge Discharge To : Home with ambulatory/outpatient follow-up Mode Of Departure : Ambulatory Accompanied By : Responsible adult Discharge Instructions Reviewed With, Opportunity For Questions Given : Patient Prescriptions Given to Patient : Yes Number of Prescriptions Given : 2 Cris Weiner RN - 09/19/2019 0:01 EST Electronically signed by Tito [facility] Conversion Foreign Language Professor [employer] at 02/06/2023 2:47 PM CDT documented in this encounter Plan of Treatment Not on file documented as of this encounter Visit Diagnoses Not on filedocumented in this encounter
--- OUTSIDE RECORDS SUMMARY | 2025-09-03 07:56 | XMS_ITS | Encounter Summary ---
Author Organization [employer] ([place], [place], [place], [place], [place]) Address [address] [place] [address] Care Team Providers Care Pharmacy Sales Assistant Name Role Phone Unavailable Primary Care Provider Unavailabl e Encounter Details Date Type Department Care Team (Late st Contact Info) Description 08/06/2019 Transcribed Document [facility] [place] [facility] [place] [address] ProviderDonald MD [address] [place] [address] Social History Tobacco Use Types [...] Conversion Note - Donald Marte MD - 08/06/2019 3:19 PM CDT Patient Education Materials Follows: General Anesthesia, Adult, Care After This sheet gives you information about how to care for yourself after your procedure. Your health care provider may also give you more specific instructions. If you have problems or questions, contact your health care provider. What can I expect after the procedure? After the procedure, the following side effects are common: ??? Pain or discomfort at the IV site. ??? Nausea. ??? Vomiting. ??? Sore throat. ??? Trouble concentrating. ??? Feeling cold or chills. ??? Weak or tired. ??? Sleepiness and fatigue. ??? Soreness and body aches. These side effects can affect parts of the body that were not involved in surgery. Follow these instructions at home: For at least 24 hours after the procedure: ??? Have a responsible adult stay with you. It is important to have someone help care for you until you are awake and alert. ??? Rest as needed. ??? Do not: ? Participate in activities in which you could fall or become injured. ? Drive. ? Use heavy machinery. ? Drink alcohol. ? Take sleeping pills or medicines that cause drowsiness. ? Make important decisions or sign legal documents. ? Take care of children on your own. Eating and drinking ??? Follow any instructions from your health care provider about eating or drinking restrictions. ??? When you feel hungry, start by eating small amounts of foods that are soft and easy to digest (bland), such as toast. Gradually return to your regular diet. ??? Drink enough fluid to keep your urine pale yellow. ??? If you vomit, rehydrate by drinking water, juice, or clear broth. General instructions ??? If you have sleep apnea, surgery and certain medicines can increase your risk for breathing problems. Follow instructions from your health care provider about wearing your sleep device: ? Anytime you are sleeping, including during daytime naps. ? While taking prescription pain medicines, sleeping medicines, or medicines that make you drowsy. ??? Return to your normal activities as told by your health care provider. Ask your health care provider what activities are safe for you. ??? Take rrnn-pmc-piriffs and prescription medicines only as told by your health care provider. ??? If you smoke, do not smoke without supervision. ??? Keep all follow-up visits as told by your health care provider. This is important. Contact a health care provider if: ??? You have nausea or vomiting that does not get better with medicine. ??? You cannot eat or drink without vomiting. ??? You have pain that does not get better with medicine. ??? You are unable to pass urine. ??? You develop a skin rash. ??? You have a fever. ??? You have redness around your IV site that gets worse. Get help right away if: ??? You have difficulty breathing. ??? You have chest pain. ??? You have blood in your urine or stool, or you vomit blood. Summary ??? After the procedure, it is common to have a sore throat or nausea. It is also common to feel tired. ??? Have a responsible adult stay with you for the first 24 hours after general anesthesia. It is important to have someone help care for you until you are awake and alert. ??? When you feel hungry, start by eating small amounts of foods that are soft and easy to digest (bland), such as toast. Gradually return to your regular diet. ??? Drink enough fluid to keep your urine pale yellow. ??? Return to your normal activities as told by your health care provider. Ask your health care provider what activities are safe for you. This information is not intended to replace advice given to you by your health care provider. Make sure you discuss any questions you have with your health care provider. Document Released: 01/15/2002 Document Revised: 05/25/2018 Document Reviewed: 05/25/2018 Elsevier Interactive Patient Education ? 2019 [employer] documented in this encounter Plan of Treatment Not on file documented as of this encounter Visit Diagnoses Not on filedocumented in this encounter
--- OUTSIDE RECORDS SUMMARY | 2025-09-03 07:56 | XMS_ITS | Encounter Summary ---
Author Organization [employer] ([place], [place], [place], [place], [place]) Address [address] [place] [address] Care Team Providers Care Platform Material Handling Supervisor Name Role Phone Unavailable Primary Care Provider Unavailabl e Encounter Details Date Type Department Care Team (Late st Contact Info) Description 08/06/2019 Transcribed Document [facility] [place] Family Medicine [address] [place] [address] ProviderDonald MD [address] [place] [address] Social History Tobacco Use Types [...] Conversion Note - Donald ProviderMD - 08/06/2019 3:25 PM CDT [facility] [address] ANTONIA MORALESPATTIE HOWARD :1965 Visit Time:08/06/2019 What to do next Your Diagnosis Calculus of kidney, Calculus of kidney Instructions From Your Care Team Diet after Discharge: Resume usual diet as tolerated, Do not drink any alcoholic beverages, Drink at least 8-10 glasses of water per day Activity after Discharge: As tolerated, Rest and relax today, No strenuous activity Lifting Restrictions: No heavy lifting over 10 pounds follow ESWL instructions and strain all urine and save stones Driving after Discharge: Do not drive until 24 hours after no longer taking pain medications Showering/Bathing: May shower , _ Notify Provider of: temp over 101, redness or swelling or pus like drainage Follow-Up Appointments Follow Up with NAKUL ROCHE MD-URO When Within 1 month Comments return 09-09-19 at 1pm Where: [address] [id number]- Medications What How Much When Instructions Next Dose calcium carbonate (Tums 500 mg oral tablet, chewable) 2 tabs Chew As needed for Indigestion lisinopril (lisinopril 10 mg oral tablet) 1 Tablet(s) Oral Every Day 1/ 2 tab raNITIdine (Zantac 75 oral tablet) 1 Tablet(s) Oral Two Times A Day simvastatin (simvastatin 20 mg oral tablet) 1 Tablet(s) Oral Every Day Take your medications faithfully. Do NOT skip [...] of unused and medications per pharmacy guidance. Education Materials General Anesthesia, Adult, Care After This sheet [...] activities are safe for you. ??? Take xzcc-khb-cadwrme and prescription medicines only as told by [...] 01/15/2002 Document Revised: 05/25/2018 Document Reviewed: 05/25/2018 Going Interactive Patient Education ?? 2019 [employer]. Emergency Awareness and Preventative Care STROKE is [...] Assistance with quitting is available by contacting 5-041-WACX-NOW. This is a free resource providing counseling, [...] and how to prevent infections, visit www.cdc.gov/sepsis. Test Results Laboratory or Other Results This Visit (last charted value for your 08/06/2019 visit) Diagnostic Radiology 08/06/2019 9:26 AM CR Abdomen 1 Vw: CR Abdomen 1 Vw Patient Name:MORALES KNIGHT I have received this information and was given the opportunity to ask questions. Patient/Staple Cutter Name: Patient/Staple Cutter Signature: Relationship to Patient: Clinician/Hospital Staple Cutter Signature: Date: Electronically signed by Tito, [facility] Conversion Big Data Analytics Lead Wesley at 02/06/2023 2:58 PM CDT documented in this encounter Plan of Treatment Not on file documented as of this encounter Visit Diagnoses Not on filedocumented in this encounter
--- OUTSIDE RECORDS SUMMARY | 2025-09-03 07:56 | XMS_ITS | Encounter Summary ---
Author Organization [employer] ([place], [place], [place], [place], [place]) Address [address] [place] [address] Care Team Providers Care Sales Promotion Representative Name Role Phone Unavailable Primary Care Provider Unavailabl e Encounter Details Date Type Department Care Team (Late st Contact Info) Description 09/15/2019 Transcribed Document [facility] Family Medicine [facility] [place] [address] ProviderDonald MD [address] [place] [address] Social History Tobacco Use Types [...] - Historical ProviderMD - 09/15/2019 8:53 AM RIG MECHANIC ED Triage Entered On: 09/15/2019 9:12 EST Performed On: 09/15/2019 9:10 EST by ASIF RONDON RN ED Triage Across the Room Triage Date/Time : 09/15/2019 9:10 EST Chief Complaint : LEFT FLANK PAIN, PT HAD STONES BUSTED LAST WEEK, HAD 3 TO PASS, PAIN STARTED SINCE MONDAY OFF AND ON, ASIF RONDON RN - 09/15/2019 9:10 EST DCP GENERIC CODE Tracking Acuity : 3 - Urgent Tracking Group [facility] ASIF RONDON RN - 09/15/2019 9:10 EST Mode of Arrival : Ambulatory Transported to ED by : Private vehicle To Room Via : Wheelchair Accompanied By : Spouse ED Vital Signs : Document Height & Weight : Document ED Allergies : Document ED Reason for Visit : Document Apparel Patternmaker Needed : No ASIF RONDON RN - 09/15/2019 9:10 EST Infectious Disease History Infectious Disease History : Chicken pox/Shingles, Influenza, Measles, Mumps Fever/Chills Last 48 Hours : No Travel To Regions with Travel Advisories : No Travel Outside [place] Within Last 30 Days : No Contact With Traveler to Advisory Region : No Tuberculosis Symptoms : None ASIF RONDON RN - 09/15/2019 9:10 EST Vital Signs ED Temperature Source : Oral Temperature Mode : Fahrenheit Temperature, Fahrenheit : 97.9 Deg F ED Pain : Yes Clinical Temperature, C : 36.6 Deg C Oxygen Therapy Mode : Room air Peripheral Pulse Rate : 90 bpm Respiratory Rate : 18 Breaths/Min Systolic Blood Pressure : 153 mmHg (HI) Diastolic Blood Pressure : 100 mmHg (HI) Oxygen Saturation : 97 % ASIF RONDON RN - 09/15/2019 9:10 EST Allergy (As Of: 09/15/2019 09:12:22 EST) Allergies (Active) No Known Allergies Estimated Onset Date: Unspecified ; Created By: Contributor_system HIST_[email or web address]; Reaction Status: Active ; Category: Drug ; Substance: No Known Allergies ; Type: Allergy ; Updated By: Contributor_system HIST_CERSUSY; Reviewed Date: 09/15/2019 9:11 EST Diagnosis Control ED (As Of: 09/15/2019 09:12:22 EST) Problems(Active) At risk for sleep apnea (IMO :65919438 ) Name of Problem: At risk for sleep apnea ; Recorder: SYSTEM, SYSTEM; Confirmation: Confirmed ; Classification: Medical ; Code: [id number] ; Last Updated: 08/06/2019 10:49 EDT ; Life Cycle Date: 08/06/2019 ; Life Cycle Status: Active ; Vocabulary: IMO Back pain (SNOMED CT :189511098 ) Name of Problem: Back pain ; Recorder: GLYNN ALVA RN; Confirmation: Confirmed ; Classification: Medical ; Code: [id number] ; Contributor System: [employer] ; Last Updated: 12/11/2014 6:35 EST ; Life Cycle Date: 12/11/2014 ; Life Cycle Status: Active ; Vocabulary: SNOMED CT GERD (gastroesophageal reflux disease) (SNOMED CT :704377831 ) Name of Problem: GERD (gastroesophageal reflux disease) ; Recorder: GLYNN ALVA RN; Confirmation: Confirmed ; Classification: Medical ; Code: [id number] ; Contributor System: PowerChart ; Last Updated: 12/11/2014 6:33 EST ; Life Cycle Date: 12/11/2014 ; Life Cycle Status: Active ; Vocabulary: SNOMED CT Headache, migraine (SNOMED CT :70378572 ) Name of Problem: Headache, migraine ; Recorder: GLYNN ALVA RN; Confirmation: Confirmed ; Classification: Medical ; Code: 62943464 ; Contributor System: PowerChart ; Last Updated: 12/11/2014 6:34 EST ; Life Cycle Date: 12/11/2014 ; Life Cycle Status: Active ; Vocabulary: SNOMED CT Hemorrhoids (SNOMED CT :397970370 ) Name of Problem: Hemorrhoids ; Recorder: GLYNN ALVA RN; Confirmation: Confirmed ; Classification: Medical ; Code: 188606183 ; Contributor System: PowerChart ; Last Updated: 12/11/2014 6:34 EST ; Life Cycle Date: 12/11/2014 ; Life Cycle Status: Active ; Vocabulary: SNOMED CT History of shingles (SNOMED CT :470779386 ) Name of Problem: History of shingles ; Recorder: GLYNN ALVA RN; Confirmation: Confirmed ; Classification: Medical ; Code: 510025491 ; Contributor System: PowerChart ; Last Updated: 12/11/2014 6:36 EST ; Life Cycle Date: 12/11/2014 ; Life Cycle Status: Active ; Vocabulary: SNOMED CT Hx of sinusitis (SNOMED CT :302612542 ) Name of Problem: Hx of sinusitis ; Recorder: GLYNN ALVA RN; Confirmation: Confirmed ; Classification: Medical ; Code: 428274301 ; Contributor System: PowerChart ; Last Updated: 12/11/2014 6:32 EST ; Life Cycle Date: 12/11/2014 ; Life Cycle Status: Active ; Vocabulary: SNOMED CT Hyperlipidemia (SNOMED CT :09172525 ) Name of Problem: Hyperlipidemia ; Recorder: GLYNN ALVA RN; Confirmation: Confirmed ; Classification: Medical ; Code: 07886987 ; Contributor System: PowerChart ; Last Updated: 12/11/2014 6:35 EST ; Life Cycle Date: 12/11/2014 ; Life Cycle Status: Active ; Vocabulary: SNOMED CT Hypertension (SNOMED CT :8046821123 ) Name of Problem: Hypertension ; Recorder: GLYNN ALVA RN; Confirmation: Confirmed ; Classification: Medical ; Code: 6995975105 ; Contributor System: Cert[employer] GroupChart ; Last Updated: 12/11/2014 6:32 EST ; Life Cycle Date: 12/11/2014 ; Life Cycle Status: Active ; Vocabulary: SNOMED CT Kidney stone (SNOMED CT :316623791 ) Name of Problem: Kidney stone ; Recorder: GLYNN ALVA RN; Confirmation: Confirmed ; Classification: Medical ; Code: 495863709 ; Contributor System: PowerChart ; Last Updated: 12/11/2014 6:31 EST ; Life Cycle Date: 12/11/2014 ; Life Cycle Status: Active ; Vocabulary: SNOMED CT Seasonal allergies (SNOMED CT :156985344 ) Name of Problem: Seasonal allergies ; Recorder: GLYNN ALVA RN; Confirmation: Confirmed ; Classification: Medical ; Code: 401716530 ; Contributor System: PowerChart ; Last Updated: 12/11/2014 6:32 EST ; Life Cycle Date: 12/11/2014 ; Life Cycle Status: Active ; Vocabulary: SNOMED CT Wears glasses (SNOMED CT :531928786 ) Name of Problem: Wears glasses ; Recorder: GLYNN ALVA RN; Confirmation: Confirmed ; Classification: Medical ; Code: 288900135 ; Contributor System: [employer] ; Last Updated: 12/11/2014 6:31 EST ; Life Cycle Date: 12/11/2014 ; Life Cycle Status: Active ; Vocabulary: SNOMED CT Diagnoses(Active) Flank pain Date: 09/15/2019 ; Diagnosis Type: Reason For Visit ; Confirmation: Complaint of ; Clinical Dx: Flank pain ; Classification: Medical ; Clinical Service: Emergency medicine ; Code: PNED ; Probability: 0 ; Diagnosis Code: [id number] ED Height and Weight Height Source : Stated Height Entry Format : [place] Height, Feet : 5 ft(Converted to: 152 cm, 60 Inch) Height, Inches : 6 Inch(Converted to: 0 ft 6 Inch, 15.24 cm) Clinical Height : 167.64 cm Weight Source, ED : Critical estimated dosing weight Weight Entry Format : [place] Weight, Pounds : 185 lb Clinical Dosing Weight : 84.09 kg Body Surface Area (BSA) : 1.94 m2 Body Mass Index : 29.9 kg/m2 (HI) [place] Body Weight (IBW) : 62.88 kg ASIF RONDON, ANAND - 09/15/2019 9:10 EST Pain Assessment Pain Assessment : Initial assessment Pain Scale Used : 0-10 Scale Location : Flank, right ASIF RONDON RN - 09/15/2019 9:10 EST Pain Scale Intensity : 8 ASIF ORNDON RN - 09/15/2019 9:10 EST Image 4 - Images currently included in the form version of this document have not been included in the text rendition version of the form. Electronically signed by Marilu Francis Conversion Instructional Materials Director Cerner at 02/06/2023 2:54 PM CDT documented in this encounter Plan of Treatment Not on file documented as of this encounter Visit Diagnoses Not on filedocumented in this encounter
--- OUTSIDE RECORDS SUMMARY | 2025-09-03 07:56 | XMS_ITS | Encounter Summary ---
Author Organization [employer] ([place], [place], [place], [place], [place]) Address [address] [place] [address] Care Team Providers Care Fish Processing Supervisor Name Role Phone Unavailable Primary Care Provider Unavailabl e Encounter Details Date Type Department Care Team (Late st Contact Info) Description 08/06/2019 Transcribed Document [facility] [place] Family Medicine [facility] [place] [address] ProviderDonald MD [address] [place] [address] Social History Tobacco Use Types [...] Donald ProviderMD - 08/06/2019 1:02 PM CDT [facility] Main OR Preop Summary Primary Physician: NAKUL ROCHE MD-URO Finalized Date/Time: 08/06/19 15:41:21 Pt. Name: MORALES KNIGHT /Sex: 1965 Male Med Rec #: [id number] Physician: NAKUL ROCHE MD-URO Financial #: [id number] Pt. Type: O Room/Bed: Admit/Disch: 08/06/19 09:13:00 - Institution: [facility] PreOp Case Times Entry 1 In Preop 08/06/19 09:37:00 Ready for Holding n/a Room Patient Ready for 08/06/19 10:58:00 Surgery Patient Out of Preop 08/06/19 12:39:00 Patient Out of n/a Holding Room Last Modified By: Bella Obrien RN 08/06/19 15:41:09 [facility] PreOp Case Times Audit 08/06/19 15:41:09 Flight Attendant Ramp: THUY Modifier: CINDRIM <+> 1 Patient Out of Preop Finalized By: Bella Obrien, RN Document Signatures Signed By: Bella Obrien RN 08/06/19 15:41 Electronically signed by Tito [facility] Conversion Director Engineering Cerner at 02/06/2023 3:12 PM CDT documented in this encounter Plan of Treatment Not on file documented as of this encounter Visit Diagnoses Not on filedocumented in this encounter
--- OUTSIDE RECORDS SUMMARY | 2025-09-03 07:56 | XMS_ITS | Encounter Summary ---
Author Organization [employer] ([place], [place], [place], [place], [place]) Address [address] [place] [address] Care Team Providers Care Scheduling Administrator Name Role Phone Unavailable Primary Care Provider Unavailabl e Encounter Details Date Type Department Care Team (Late st Contact Info) Description 08/06/2019 Transcribed Document [facility] [place] Family Medicine [facility] [address] ProviderDonald MD [address] [place] [address] Social History Tobacco Use Types [...] Donald ProviderMD - 08/06/2019 1:02 PM CDT [facility] Main OR IntraOp Summary Primary Physician: NAKUL ROCHE MD-URO Finalized Date/Time: 08/07/19 15:20:50 Pt. Name: MORALES KNIGHT /Sex: 1965 Male Med Rec #: [id number] Physician: NAKUL ROCHE MD-URO Financial #: [id number] Pt. Type: O Room/Bed: Admit/Disch: 08/06/19 09:13:00 - 08/06/19 16:20:00 Institution: [facility] IntraOp Case Attendance Entry 1 Entry 2 Entry 3 Case Attendee NAKUL ROCHE MD-URO [place], Hazel, TERESA FELDER APRN Role Performed Surgeon/Proceduralist, Brake Coupler Dinkey, First FINISH ROLLS OPERATOR/Nurse Veneer Taping Machine Offbearer First Time In 08/06/19 12:46:00 08/06/19 12:46:00 08/06/19 12:46:00 Time Out 08/06/19 14:04:00 08/06/19 14:04:00 08/06/19 14:04:00 Procedure Extracorporeal Extracorporeal Extracorporeal Shockwave Shockwave Shockwave Lithotripsy(Left) Lithotripsy(Left) Lithotripsy(Left) Other Attendee Superficial Wound Closed By: Last Modified By: Yany Malone, Yany Mohan, Yany Mohan, ANAND 08/06/19 14:04:17 08/06/19 14:04:17 08/06/19 14:04:17 Entry 4 Entry 5 Case Attendee CHRISTA GONZALEZ Madden, Jerrild MD-ANS Role Performed Anesthesiologist of Other Record Time In 08/06/19 12:46:00 08/06/19 12:46:00 Time Out 08/06/19 14:04:00 08/06/19 14:04:00 Procedure Extracorporeal Extracorporeal Shockwave Shockwave Lithotripsy(Left) Lithotripsy(Left) Other Attendee Superficial Wound Closed By: Last Modified By: Yany Malone, RN Yany Malone, ANAND 08/06/19 14:04:17 08/06/19 14:04:17 [facility] IntraOp Case Attendance Audit 08/06/19 14:04:17 Editor Index: LAFAVEHM Modifier: LAFAVEHM 1 <+> Time Out 1 <*> Procedure Extracorporeal Shockwave Lithotripsy(Left) 2 <+> Time Out 2 <*> Procedure Extracorporeal Shockwave Lithotripsy(Left) 3 <+> Time Out 3 <*> Procedure Extracorporeal Shockwave Lithotripsy(Left) 4 <+> Time Out 4 <*> Procedure Extracorporeal Shockwave Lithotripsy(Left) 5 <+> Time Out 5 <*> Procedure Extracorporeal Shockwave Lithotripsy(Left) 08/06/19 13:34:55 Editor Index: LAFAVEHM Modifier: LAFAVEHM <+> 1 Procedure 2 <*> Procedure Extracorporeal Shockwave Lithotripsy(Left) 3 <*> Procedure Extracorporeal Shockwave Lithotripsy(Left) 4 <+> Time In 4 <*> Procedure Extracorporeal Shockwave Lithotripsy(Left) 5 <*> Procedure Extracorporeal Shockwave Lithotripsy(Left) [facility] IntraOp Case Times Entry 1 Patient In Room Time 08/06/19 12:46:00 Out Room Time 08/06/19 14:04:00 Anesthesia Start Time 08/06/19 12:46:00 Stop Time 08/06/19 14:04:00 Surgery / Procedure Times Start Time 08/06/19 13:02:00 Stop Time 08/06/19 13:47:00 Last Modified By: Yany Malone RN 08/06/19 14:04:12 [facility] IntraOp Case Times Audit 08/06/19 14:04:12 Editor Index: LAFAVEHM Modifier: LAFAVEHM <+> 1 Out Room Time <+> 1 Stop Time 08/06/19 13:49:25 Editor Index: LAFAVEHM Modifier: LAFAVEHM <+> 1 Stop Time [facility] IntraOp Communication Entry 1 Entry 2 Communication To Family/Significant other Family/Significant other Comment Communication By Yany Malone RN Date and Time 08/06/19 12:06:00 Last Modified By: Yany Malone, Yany Mohan RN 08/06/19 13:29:47 08/06/19 13:31:11 [facility] IntraOp Communication Audit 08/06/19 13:31:11 Editor Index: LAFAVEHM Modifier: LAFAVEHM <+> 2 Communication By <+> 2 Date and Time <+> 2 Communication To [facility] IntraOp Delays Entry 1 Delay Reason Surgeon late - did not call Duration 43 Minute(s) Last Modified By: Yany Malone RN 08/06/19 13:31:48 [facility] IntraOp Departure from OR Entry 1 Integumentary Assessment Integumentary WDL Assessment WDL Transfer/Handoff Transfer to PACU Phase I Handoff Method Bedside/Face to face, Phone call Post-op Transport Stretcher/Princess Via Patient Transport TERESA RAMIREZ APRN, Accompanied by Yany Malone, ANAND Last Modified By: Yany Malone RN 08/06/19 13:32:00 [facility] IntraOp Fire Risk Assessment Entry 1 Fire Info Surgical Site or 0- No Incision Above the Xyphoid Open O2 Source 0- No (Mask or Cannula) Available Ignition 1- Yes (ESU, Laser, Light Source) Fire Risk 1 Assessment Score Fire Score Fire Risk Yes Assessment Complete Fire Risk Yany Malone RN Assessment Verified By Fire Risk 08/06/19 12:46:00 Assessment Verified Date/Time Fire Risk Standard Fire Yes Safety Precautions Followed Last Modified By: Yany Malone RN 08/06/19 13:32:23 [facility] IntraOp Fire Risk Assessment Audit 08/06/19 13:32:23 Editor Index: [place] Modifier: LAFAVEHM <+> 1 Fire Risk Assessment Verified Date/Time [facility] IntraOp General Case Senior Environmental Scientist 1 Case Information OR OR 19 [facility] Case Level 1 Room Verified Yes Wound Class II - Clean-Contaminated Specialty SN Urology Anesthesia Type General ASA Class 2 Diagnosis Preop Diagnosis KIDNEY STONES LEFT Postop Same As Preop No Postop Diagnosis SEE MD POST OP NOTES Last Modified By: Yany Malone RN 08/06/19 13:32:52 [facility] IntraOp Intraoperative Assessment Entry 1 Valid History / Yes Physical in Chart Preoperative Yes Checklist Reviewed/Evaluated Allergies Reviewed Yes Patient is Latex No Sensitive Isolation Not applicable Precautions Noted Level of WDL Consciousness (WDL = Alert, Oriented to Person, Place, and Time) Skin Assessment No Verified Present Upon IVs Arrival to OR Last Modified By: Yany Malone RN 08/06/19 13:33:00 [facility] IntraOp Intraoperative Equipment Entry 1 Type Monitoring Equipment Intraop Monitoring Antiembolic Devices Antiembolic Devices Sequential compression device, knee high Antiembolic Device Bilateral Location Antiembolic Device [id number] ID Number Antiembolic Device SCD'S ON AND WORKING Setting PRIOR TO INDUCTION Scopes Photo/Video Documentation Last Modified By: Yany Malone RN 08/06/19 13:33:42 [facility] IntraOp Patient Positioning Entry 1 Procedure Extracorporeal Shockwave Lithotripsy(Left) Body Position Supine Left Arm Position Resting at side Right Arm Position Resting at side Left Leg Position Uncrossed, parallel Right Leg Position Uncrossed, parallel Feet Uncrossed Yes Pressure Points Yes Checked Positioning Devices Table, Cysto, Head Rest, Safety Strap, Chest, Pad, Elbow, Pad, Elbow, Wedge, Pillows Device Position Wedge under knees, pillow under feet/ankles Positioned By NAKUL ROCHE MD-URO, Yany Malone, RN, TERESA RAMIREZ APRN, Sedrick Bee Position Verified Positioning Yes Verified by Anesthesia Positioning Yes Verified by Surgeon Last Modified By: Yany Malone RN 08/06/19 13:34:05 [facility] IntraOp Sign In Entry 1 Patient, Site, Yes Procedure Identified Surgical Consent Yes Confirmed Relevant Surgical Yes Documents Available Surgical Site Yes Marked by person performing procedure Anesthesia Machine Yes Check Completed Medication Checks Yes Completed Allergies No Airway Difficult Yes Airway/Aspiration Risk Difficult Yes Airway/Aspiration Intervention Equipment Available Blood Loss Risk No Blood Loss No Intervention Equipment Prepared and Ready Blood Identifiers Not applicable Verified Per Policy Hypothermia Risk Yes Warming Measures Yes Taken Last Modified By: Yany Malone RN 08/06/19 13:34:18 [facility] IntraOp Sign Out Entry 1 RN Confirmation Surgical Yes Procedure(s) Identified Instrument, Sponge N/A and Sharps Counts Correct/Documented Equipment Problems N/A Documented Specimen Labeled N/A Correctly Urinary Catheter N/A Documented in IView Barnett Patient Yes Recovery Concerns Reviewed with Anesthesia Provider, Surgeon and RN Barnett Patient Yes Management Concerns Reviewed with Anesthesia Provider, Surgeon and RN Safety Checklist Yes Elements Complete? RN Sign Out Yany Malone, RN Signature RN Sign Out 08/06/19 13:57:00 Signature Date/Time Plan of Care Outcome - Fire Risk OUTCOME STATEMENT: Goal met Patient is free from injury related to surgical fire Plan of Care Outcome - Pt Positioning OUTCOME STATEMENT: Goal met Absence of signs and symptoms of positioning injury. Plan of Care Outcome - Skin Prep OUTCOME STATEMENT: Goal met Intraoperative care is consistent with measures to prevent infection Plan of Care Outcome - Xray/Images OUTCOME STATEMENT: Goal met Absence of observable signs or symptoms of radiation injury Plan of Care Outcome - Counts OUTCOME STATEMENT: Goal met Absence of signs and symptoms of injury related to extraneous objects Last Modified By: Yany Malone RN 08/06/19 13:57:12 [facility] IntraOp Sign Out Audit 08/06/19 13:57:12 Editor Index: [place] Modifier: LAFRABIAHM <+> 1 RN Sign Out Signature Date/Time [facility] IntraOp Surgical Procedures Entry 1 Procedure Extracorporeal Shockwave Lithotripsy Modifiers Left Additional (LEFT RENAL ESWL) Procedure Description Primary Procedure Yes Primary Surgeon NAKUL ROCHE MD-URO Start 08/06/19 13:02:00 Stop 08/06/19 13:47:00 Anesthesia Type General Specialty SN Urology Wound Class I - Clean Last Modified By: Yany Malone RN 08/06/19 13:49:29 [facility] IntraOp Surgical Procedures Audit 08/06/19 13:49:29 Editor Index: [place] Modifier: LAFAVEHM 1 <*> Procedure Extracorporeal Shockwave Lithotripsy 1 <+> Stop [facility] IntraOp Temp Regulation Devices Entry 1 Temp Regulation Temperature Warm blankets, Room Regulation Device temperature Temperature Upper body Regulation Site Temperature TERESA RAMIREZ APRN Regulation Device Applied by Temperature Patient's temperature Regulation Comment monitored by anesthesia provider. Forced air warming device available for use. Last Modified By: Yany Malone RN 08/06/19 13:35:11 [facility] IntraOP Time Out Entry 1 Procedure to be Extracorporeal Performed Shockwave Lithotripsy(Left) Time Out Time Out Pause Time 08/06/19 13:01:00 All activity Yes suspended (unless life threatening emergency) Team Verbally Correct patient Confirms Information identity, Consent form is present and accurate, Agreement on the procedure to be done, Correct patient position, Relevant images/results properly labeled/appropriately displayed, Confirm antibiotics have been administered, Confirm the skin prep has dried, Performed in location of procedure after prepped/draped Time Out Comment SURGEON ACKNOWLEDGE AND AGREED OP SITE IS THE PATIENT RIGHT SIDE.RIGHT SIDE MARKED PREOP BY SURGEON. AFTER LINUX SYSTEM ADMINISTRATOR FILM THE CORRECT PROCEDURE SITE WAS DETERMINED TO BE ON PATIENT LEFT SIDE. Antibiotic N/A Prophylaxis Administered Or In Progress Within the Last 60 Minutes Beta Maria Del Rosario N/A Administered Venous Yes Thromboembolism Prophylaxis Required Anticipated Critical Events Surgeon None expected, Special equipment need Anesthesia Provider None expected Essential Imaging Yes Labeled and Displayed Last Modified By: Yany Malone RN 08/06/19 13:39:36 Case Comments <None> Finalized By: Margi Vinson Document Signatures Signed By: Yany Malone RN 08/06/19 14:04 Margi Vinson 08/07/19 15:20 Unfinalized History Date/Time Username Reason for Unfinalizing Freetext Reason for Unfinalizing 08/07/19 15:20 [email or web address] Correct Billing Electronically signed by Tito, [facility] Conversion Electrolytic De Scaler Cerner at 02/06/2023 2:56 PM CDT documented in this encounter Plan of Treatment Not on file documented as of this encounter Visit Diagnoses Not on filedocumented in this encounter
--- OUTSIDE RECORDS SUMMARY | 2025-09-03 07:56 | XMS_ITS | Encounter Summary ---
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 [place] [address] MORALES KNIGHTE :1965 Visit Time:09/18/2019 Your Visit Summary Your Care Team Primary Provider: DEVAN SEE Secondary Provider: Your Diagnosis Calculus, ureteral Dysuria Flank pain, Flank pain Hematuria Hydroureteronephrosis Left flank pain Urination painful Medical Information You may obtain a copy [...] ROCHE When Within 2 to 3 days Comments Call for follow up appointment with UROLOGY Follow-up as instructed Return if condition worsens Where: [address] [facility] [address] [place] [address] [facility] (1) Follow Up with LUIZ CONTE When Within 2 to 3 days Comments Call for follow up appointment Follow-up as instructed Return if condition worsens Symptomatic care is recommended. Take all medications as prescribed and instructed. Where: [address] [place] [address]- [facility] (1) Allergies No Known Allergies Immunizations This Visit No Immunizations Found Medications What How Much When Instructions Next Dose New acetaminophen-hydrocodone ([place] 7.5 mg-325 mg oral tablet) 1 Tablet(s) Oral Every 6 Hours as needed for for pain Duration: 3 Day(s) Printed Prescription New tamsulosin (Flomax 0.4 mg oral capsule) 1 Capsule(s) Oral Every Day Duration: 7 Day(s) Printed Prescription The home medications listed are only as [...] This Visit (last charted value for your 09/18/2019 visit) Hematology 09/18/2019 10:50 PM WBC: 14.0 K/uL -- Normal range between ( 3.6 and 9.5 ) RBC: 5.16 Million/uL -- Normal range between ( 4.20 and 5.70 ) Hct: 45.5 % -- Normal range between ( 40.1 and 51.0 ) Hgb: 15.6 g/dL -- Normal range between ( 13.5 and 17.3 ) Platelet Count: 270 K/uL -- Normal range between ( 163 and 369 ) MCH: 30.2 pg -- Normal range between ( 25.6 and 32.2 ) MCHC: 34.3 Gram/dL -- Normal range between ( 32.2 and 36.5 ) MCV: 88.2 fL -- Normal range between ( 79.0 and 94.8 ) Slide Review: No Eos %: 0.7 % -- Normal range between ( 0.0 and 7.0 ) Stephens #: 0.93 K/uL -- Normal range between ( 0.16 and 1.00 ) Eos #: 0.10 x10(3)/uL -- Normal range between ( 0.00 and 0.80 ) Stephens %: 6.6 % -- Normal range between ( 3.0 and 9.0 ) Baso %: 0.6 % -- Normal range between ( 0.0 and 1.5 ) Baso #: 0.08 x10(3)/uL -- Normal range between ( 0.00 and 0.20 ) RDW: 11.8 % -- Normal range between ( 11.7 and 14.9 ) Neut %: 83.1 % -- Normal range between ( 34.0 and 71.0 ) Neut #: 11.64 K/uL -- Normal range between ( 1.56 and 6.13 ) Lymph %: 8.6 % -- Normal range between ( 19.3 and 53.1 ) Lymph #: 1.21 x10(3)/uL -- Normal range between ( 1.00 and 3.90 ) MPV: 10.1 fL -- Normal range between ( 9.4 and 12.4 ) IG#: 0.06 x10(3)/uL -- Normal range between ( 0.00 and 0.05 ) IG%: 0.40 % -- Normal range between ( 0.00 and 0.60 ) Urinalysis 09/18/2019 10:50 PM Ur RBC: 20-50 /HPF Urine Nitrite: Negative Urine Leukocyte Esterase: Negative Urine Appearance: Clear Urine Glucose Dipstick: Negative Urine Blood Dipstick: Large Urine Type: U CleanCatch Urine Urobilinogen Dipstick: 0.2 EU/dL Urine Protein Dipstick: 30 Ur Bacteria: Trace Urine Color: Ana Ur WBC: 2-5 /HPF Urine Ketones Dipstick: Trace Urine pH Dipstick: 5.5 -- Normal range between ( 6.0 and 8.0 ) Urine Bilirubin Dipstick: Negative Urine Specific Russell: >1.030 -- Normal range between ( 1.005 and 1.030 ) General Chemistry 09/18/2019 10:50 PM Creatinine Level: 1.70 mg/dL -- Normal range between ( 0.70 and 1.30 ) Sodium Level: 136 mmol/L -- Normal range between ( 136 and 146 ) Potassium Level: 4.7 mmol/L -- Normal range between ( 3.5 and 5.1 ) Chloride Level: 107 mmol/L -- Normal range between ( 102 and 112 ) Carbon Dioxide Level: 23 mmol/L -- Normal range between ( 21 and 32 ) Anion Gap: 11 -- Normal range between ( 9 and 20 ) Bilirubin Total: 0.8 mg/dL -- Normal range between ( 0.2 and 1.2 ) A/G Ratio: 0.9 -- Normal range between ( 1.1 and 2.5 ) ALT: 77 Units/Liter -- Normal range between ( 16 and 61 ) AST: 36 Units/Liter -- Normal range between ( 5 and 37 ) Globulin: 4.3 Gram/dL -- Normal range between ( 1.5 and 4.5 ) Alk Phos: 118 Units/Liter -- Normal range between ( 27 and 136 ) Bun/Creatinine: 15.9 -- Normal range between ( 8.0 and 20.0 ) Calcium Level: 9.3 mg/dL -- Normal range between ( 8.4 and 10.1 ) eGFR : 51 mL/min/1.73m2 eGFR NonAfrican: 42 mL/min/1.73m2 Glucose Level: 114 mg/dL -- Normal range between ( 74 and 106 ) Blood Urea Nitrogen: 27 mg/dL -- Normal range between ( 7 and 22 ) Protein Total: 8.2 Gram/dL -- Normal range between ( 6.4 and 8.2 ) Albumin Level: 3.9 Gram/dL -- Normal range between ( 3.4 and 5.0 ) Computed Tomography 09/18/2019 10:[address] Abdomen Pelvis WO: CT Abdomen Pelvis WO [employer] Flank Pain, Adult Flank pain is pain that is located on the side of the body between the upper abdomen and the back. This area is called the flank. The pain may occur over a short period of time (acute), or it may be long-term or recurring (chronic). It may be mild or severe. Flank pain can be caused by many things, including: ??? Muscle soreness or injury. ??? Kidney stones or kidney disease. ??? Stress. ??? A disease of the spine (vertebral disk disease). ??? A lung infection (pneumonia). ??? Fluid around the lungs (pulmonary edema). ??? A skin rash caused by the chickenpox virus (shingles). ??? Tumors that affect the back of the abdomen. ??? Gallbladder disease. Follow these instructions at home: ??? Drink enough fluid to keep your urine clear or pale yellow. ??? Rest as told by your health care provider. ??? Take svix-vqk-bvcnbcs and prescription medicines only as told by your health care provider. ??? Keep a journal to track what has caused your flank pain and what has made it feel better. ??? Keep all follow-up visits as told by your health care provider. This is important. Contact a health care provider if: ??? Your pain is not controlled with medicine. ??? You have new symptoms. ??? Your pain gets worse. ??? You have a fever. ??? Your symptoms last longer than 2???3 days. ??? You have trouble urinating or you are urinating very frequently. Get help right away if: ??? You have trouble breathing or you are short of breath. ??? Your abdomen hurts or it is swollen or red. ??? You have nausea or vomiting. ??? You feel faint or you pass out. ??? You have blood in your urine. Summary ??? Flank pain is pain that is located on the side of the body between the upper abdomen and the back. ??? The pain may occur over a short period of time (acute), or it may be long-term or recurring (chronic). It may be mild or severe. ??? Flank pain can be caused by many things. ??? Contact your health care provider if your symptoms get worse or they last longer than 2???3 days. This information is not intended to replace advice given to you by your health care provider. Make sure you discuss any questions you have with your health care provider. Document Released: 11/30/2006 Document Revised: 12/22/2017 Document Reviewed: 12/22/2017 [employer] Interactive Patient Education ?? 2019 [employer] Kidney Stones Kidney stones (urolithiasis) are solid, [...] kidney stones in the future. ??? Take stbn-xmb-tghappq and prescription medicines only as told by [...] 10/09/2006 Document Revised: 03/22/2018 Document Reviewed: 03/24/2017 [employer] Interactive Patient Education ?? 2019 [employer] Emergency Awareness and Preventative Care STROKE [...] Assistance with quitting is available by contacting 9-563-FTANNOW. This is a free resource providing counseling, support, and referral. Or you may contact your personal physician. [place] Suicide Prevention Lifeline: The National Suicide Prevention [...] CPR? There are two easy steps: Call 9-1-1 if you see a teen or adult [...] including: emergency, radiology, or pathology physicians. Patient Name:ANTONIA, MORALES ANITA I have received this information and was given the opportunity to ask questions. Patient/Coo Name: Patient/Coo Signature: Relationship to Patient: Clinician/Hospital Coo Signature: Please Provide a Telephone Number Where You Can Be Reached: Is it Permissible To Leave a Message? Date: Electronically signed by Tito, [facility] [employer] Wesley at 02/06/2023 2:50 PM CDT documented in this encounter Plan of Treatment Not on file documented as of this encounter Visit Diagnoses Not on filedocumented in this encounter
[2025-09-03 07:58] LABS: Microscopic, Urine URINE MICROSCOPIC (MICROSCOPIC)
[2025-09-03 08:00] LABS: Bilirubin,Urine Negative (Negative); Color,Urine YELLOW (Yellow); Glucose,Urine (UA) Negative (Negative); Ketones,Urine TRACE (Negative); Leukocyte Esterase,Urine Negative (Negative); PH,Urine 6.0 (5.0-8.5); Protein,Urine TRACE (Negative); Specific Gravity, Urine 1.025 (1.005-1.030); Urobilinogen,Urine 0.2 EU/dl (0.2)
[2025-09-03 08:04] LABS: Hematocrit 41.3 % (42.0-52.0); Hemoglobin 14.0 g/dL (14.1-18.0); Immature Granulocytes % 0.3 %; Mean Corpuscular HGB Conc 33.9 g/dL (31.8-35.4); Mean Corpuscular Hemoglobin 27.7 pg (27.0-31.2); Mean Corpuscular Volume 81.8 fl (80-94); Nucleated Red Blood Cells % 0 %; Platelet Count 230 K/mm3 (142-424); Red Blood Count 5.05 M/mm3 (4.60-6.20); Red Cell Distribution Width-SD 44.1 fL; White Blood Count 9.8 K/mm3 (4.8-10.8)
[2025-09-03] MEDS: KETOROLAC 15MG/ML VIAL 15 MG IV (08:07)
[2025-09-03] MEDS: HYDROMORPHONE 2MG/ML SYRINGE 1 MG IV (08:08)
[2025-09-03] MEDS: 0.9 % SODIUM CHLORIDE 1000ML 1,000 ML 999 ML IV (08:11)
[2025-09-03] MEDS: ONDANSETRON 4MG/2ML VIAL 4 MG IV (08:15)
[2025-09-03 08:19] LABS: Alanine Aminotransferase 43 U/L (12-78); Albumin Level 4.7 g/dl (3.5-5.0); Albumin/Globulin Ratio 1.4 (1.1-1.8); Alkaline Phosphatase 126 U/L (38-126); Anion Gap 13.1 mEq/L (5-15); Aspartate Amino Transferase 39 U/L (17-59); Bilirubin,Total 1.0 mg/dl (0.2-1.3); Blood Urea Nitrogen 22 mg/dl (9-20); Calcium 9.6 mg/dl (8.4-10.2); Carbon Dioxide 21 mmol/L (22.0-30.0); Chloride 105 mmol/L (98-107); Creatinine Clearance Estimated 94 mL/min (50-200); Creatinine,Serum 1.00 mg/dl (0.66-1.25); Estimated Glomerular Filt Rate 76 ml/min (>60); GFR (African American) 92 ML/MIN (>60); Globulin 3.3 g/dL (1.3-3.2); Glucose 150 mg/dl (74-100); Lipase 79 U/L (23-300); Potassium 4.1 mmoL/L (3.5-5.1); Sodium 135 mmol/L (136-145); Total Protein,Serum 8.0 g/dl (6.3-8.2)
--- NOTE | 2025-09-03 08:32 | PC.NURSE ---
Images were powershared to [facility]
[2025-09-03] MEDS: TAMSULOSIN 0.4MG CAPSULE 0.4 MG PO (08:40)
[2025-09-03 09:07] LABS: RBC,Urine 20-50 #/hpf (0-3)
[2025-09-03 09:08] LABS: Bacteria,Urine Trace /lpf; WBC,Urine Occasional #/hpf (0-3)
--- NOTE | 2025-09-03 09:53 | PC.NURSE ---
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
--- NOTE | 2025-09-03 09:58 | PC.NURSE ---
Called per Dr Brady to consult Urology about this pt with a kidnreystone. was checking to see if they could reach a provider and have me on hold.Merly Rowell at has strted the call with Dr Brady and then Urology would join in
[2025-09-03] MEDS: OXYCODONE 5MG IMMEDIATE RELEASE TABLET 5 MG PO (10:05)
[2025-09-03] MEDS: ACETAMINOPHEN 500MG TAB 1000 MG PO (10:05)
--- NOTE | 2025-09-03 10:07 | PC.NURSE ---
Urology was gonna call back and speak with Dr Brady as soon as they were available
--- NOTE | 2025-09-03 10:09 | PC.NURSE ---
urology called back and is speaking with Dr Brady at this time
--- NOTE | 2025-09-03 10:15 | PC.NURSE ---
pt tolerating PO
== END 2025-09-03 10:35 | disposition home or self-care (01) ==
PROVIDERS: Emergency Provider Emergency Medicine; PCP Internal Medicine
DX: R10.A2 Flank pain, left side (principal); N20.1 Calculus of ureter; I10 Essential (primary) hypertension; E78.5 Hyperlipidemia, unspecified
CPT/HCPCS: 74176; 80053; 81001; 83690; 85025; 87086; 96365; 96375; 99285; J1171; J1885; J2405; J7030